=== PATIENT | female | born 1945 | race Caucasian/White ===

== ENCOUNTER 2016-03-25 09:30 | Inpatient (IN) | payer OTHER ==
[2016-03-17 08:23] VITALS: BMI 36.0
--- NOTE | 2016-03-17 08:58 | PAT Medication Instructions ---
Service Date Mar 17, 2016. Current Home Medication List Albuterol Sulfate (Proair Respiclick), 2 PUFFS INH QID PRN for RN Fluticasone Propionate (Flovent Hfa), 2 PUFFS INH QID PRN for RN Fluticasone Propionate (Nasal) (Flonase Allergy Relief), 2 SPRAYS DUSTY BID Hydrochlorothiazide (Hctz), 25 MG PO QPM Ibuprofen (Advil), 200 MG PO PRN Levothyroxine Sodium (Levothyroxine Sodium), 1 TAB PO QAM Meclizine Hcl (Meclizine Hcl), 1 TAB PO TID PRN for RN Naproxen (Aleve), 220 MG PO PRN Potassium Ext Rel (Klor-Con), 10 MEQ PO BID Sertraline (Zoloft), 100 MG PO QAM Medication Instructions For Your Scheduled Surgery - Check with surgeon for instructions: Ibuprofen (Advil), 200 MG PO PRN Naproxen (Aleve), 220 MG PO PRN - Hold the following medications the morning of surgery: Potassium Ext Rel (Klor-Con), 10 MEQ PO BID - Take the following medications the morning of surgery with a sip of water: Sertraline (Zoloft), 100 MG PO QAM Meclizine Hcl (Meclizine Hcl), 1 TAB PO TID PRN for RN (if needed) Levothyroxine Sodium (Levothyroxine Sodium), 1 TAB PO QAM Albuterol Sulfate (Proair Respiclick), 2 PUFFS INH QID PRN for RN (bring with you to hospital to morning of surgery) Fluticasone Propionate (Flovent Hfa), 2 PUFFS INH QID PRN for RN Fluticasone Propionate (Nasal) (Flonase Allergy Relief), 2 SPRAYS DUSTY BID - Take the following medications as scheduled the night before surgery: Potassium Ext Rel (Klor-Con), 10 MEQ PO BID Meclizine Hcl (Meclizine Hcl), 1 TAB PO TID PRN for RN Hydrochlorothiazide (Hctz), 25 MG PO QPM Albuterol Sulfate (Proair Respiclick), 2 PUFFS INH QID PRN for RN Fluticasone Propionate (Flovent Hfa), 2 PUFFS INH QID PRN for RN Fluticasone Propionate (Nasal) (Flonase Allergy Relief), 2 SPRAYS DUSTY BID If you have any questions please call us at [phone] (Lisa Hair PA-C) or [phone] or [phone]
[2016-03-17 09:23] LABS: BASO % 1.4 %; BASO ABS # 0.07 K/uL (0-0.2); COMPLETE YES; EOS % 2.7 %; HEMATOCRIT 39.7 % (37-47); IG% 0.2 %; LYMPH % 26.9 %; MEAN CELL VOLUME 89.2 fL (80-100); MEAN CORPUSCULAR HEMOGLOBIN 29.9 pg (25-34); MEAN CORPUSCULAR HGB CONC 33.5 g/dl (32-36); MEAN PLATELET VOLUME 11.8 fL (7.4-10.4); MONO % 6.4 %; NEUT % 62.4 %; PLATELET COUNT 276 K/uL (130-400); RED BLOOD COUNT 4.45 M/uL (4.2-5.4); WHITE BLOOD COUNT 4.83 K/uL (4.8-10.8)
[~2016-03-25] VITALS: Ht 165.1 cm; Wt 99.9 kg
[2016-03-25] VITALS (7 sets, daily range): BP systolic 124–177; BP diastolic 57–75; PULSE 58–94; TEMP 36.3–36.8; O2SAT 88–96; Ht 165.1 cm; Wt 99.9 kg
[~2016-03-25 09:30] MED LIST: ALBU18002 INH; CEFAZOLIN 3000 MG/65 ML D5W IV SCH; FLUT0.15 NAE; FLVHFA110 INH; HYDR25TA4 PO; IBUP-1050 PO; LACTATED RINGER'S 1000ML 1,000 ML IV SCH; LEVO75TA5 PO; MECL1TAB42 PO; NAPR1TAB9 PO; POTA-327 PO; SERT-234 PO
[2016-03-25] MEDS ORDERED: FENTANYL CITRATE INJ 50 MCG/1 ML 2 ML VIAL ONE (09:49)
[2016-03-25] MEDS ORDERED: MIDAZOLAM HCL 1 MG/ML 2ML VIAL ONE ×2 (09:49)
[2016-03-25] MEDS ORDERED: ATROPINE SULFATE 0.1 MG/ML 5ML SYR IV PRN (10:15)
[2016-03-25] MEDS ORDERED: PHENYLEPHRINE 100MCG/ML 5ML SYR IV PRN (10:15)
[2016-03-25] MEDS ORDERED: EpHEDrine SULFATE INJ 50 MG/ML AMP IV PRN (10:15)
[2016-03-25] MEDS ORDERED: ONDANSETRON INJ 2 MG/ML 2 ML VIAL IV PRN ×2 (10:15→14:30)
--- NOTE | 2016-03-25 10:17 | History & Physical Bridge Note ---
H&P Re-Evaluation Bridge Note: I have examined the patient, reviewed the History & Physical and in the interval since the performance of the History & Physical I have noted the following changes of clinical significance: No changes noted
[2016-03-25] MEDS ORDERED: PROPOFOL IV EMULSION 10 MG/ML 20 ML VIAL IV ONE (12:28)
[2016-03-25] MEDS ORDERED: GLYCOPYRROLATE INJ 0.2 MG/ML VIAL ONE (12:29)
[2016-03-25] MEDS ORDERED: ROCURONIUM BROMIDE 10 MG/ML 5 ML VIAL ONE (12:29)
[2016-03-25] MEDS ORDERED: NEOSTIGMINE METHYLSULFATE 5 MG/5 ML SYR ONE (12:29)
[2016-03-25] MEDS ORDERED: LIDOCAINE HCL 2% 2 ML VIAL (20MG/ML) ONE (12:29)
[2016-03-25] MEDS ORDERED: MoRPHine SULFATE 2 MG/ML CARP ONE (12:48)
[2016-03-25] MEDS ORDERED: BUPIVACAINE 0.5 % 5 MG/1 ML MPF 30ML VIAL INJ ONE (13:53)
--- NOTE | 2016-03-25 14:23 | [facility] Post Operative Brief Note ---
Immediate Operative Summary Operative Date Mar 25, 2016. Pre-Operative Diagnosis Complex Endometrial Hyperplasia with atypia, postmenopausal bleeding Post-Operative Diagnosis Complex Endometrial Hyperplasia with atypia, postmenopausal bleeding Procedure(s) Performed Total Laparoscopic Hysterectomy with Bilateral Salpingo-Oophorectomy; Cystoscopy Surgeon Dr. Barbosa Cargo Broker Surgeon(s) Dr. Blackman Estimated Blood Loss 50ML Findings On Laparoscopic exam uterus was normal size at midline and freely mobile. Bilateral tubes and ovaries were normal as well. There was a small pedunculated fibroid at the anterior lower uterine segment which was removed to aid visualization. The cervix, uterus and bilateral tubes and ovaries were successfully removed laparoscopically. Anesthesia was then instructed to push methylene blue. Once the vaginal cuff was closed a cystoscopy was performed noting that the bladder was intact with no injury or suture within the bladder wall. Bilateral ureters spilled blue tinged urine indicating both ureters were intact. The patient tolerated the procedure well and was sent to recovery with stable vital signs. Fluids (cc crystalloids) 1200 Specimens A) Right tube & ovary B) Left tube & ovary C) Uterus & fibroid Drains Turner to gravity Anesthesia General Complication(s) None Disposition Recovery Room / PACU
[2016-03-25] MEDS ORDERED: FLUTICASONE HFA 110MCG INHALER INH PRN (14:30)
[2016-03-25] MEDS ORDERED: SENNA 8.6 MG TAB PO PRN (14:30)
[2016-03-25] MEDS ORDERED: MAGNESIUM HYDROXIDE SUSP 30 ML UDC PO PRN (14:30)
[2016-03-25] MEDS ORDERED: BISACODYL 10 MG SUPP PR PRN (14:30)
[2016-03-25] MEDS ORDERED: MECLIZINE HCL 25 MG TAB PO PRN (14:30)
[2016-03-25] MEDS ORDERED: KETOROLAC TROMETHAMINE 15 MG/ML VIAL IV. PRN (14:30)
[2016-03-25] MEDS: HYDROmorphone INJ 2 MG/ML SYR/VIAL IV PRN ×4 (15:05→15:20)
[2016-03-25] MEDS: POTASSIUM CHLORIDE 10 MEQ TABCR PO SCH (17:30)
--- NOTE | 2016-03-25 17:54 | Anesthesiology Progress Note ---
Anesthesia Post Op Note Date & Time Mar 25, 2016 at 17:54 Vital Signs Pain Intensity: 2 Vital Signs Past 12 Hours Date Time Temp Pulse Resp B/P Pulse Ox O2 Delivery O2 Flow Rate FiO2 03/25/16 15:31 36.4 53 16 120/61 95 Nasal Cannula 2 03/25/16 15:25 45 16 122/59 97 Nasal Cannula 2 03/25/16 15:15 58 16 95/53 95 Nasal Cannula 2 03/25/16 15:05 53 13 120/63 98 Nasal Cannula 2 03/25/16 14:55 45 15 122/59 97 Nasal Cannula 2 03/25/16 14:45 60 15 155/78 100 Nasal Cannula 10 03/25/16 14:35 62 15 157/76 100 Nasal Cannula 10 03/25/16 14:26 37.2 70 12 158/83 98 Nasal Cannula 10 03/25/16 10:10 36.8 62 18 177/75 96 Room Air Notes Mental Status: alert / awake / arousable, participated in evaluation Pt Amnestic to Procedure: Yes Nausea / Vomiting: adequately controlled Pain: adequately controlled Airway Patency, RR, SpO2: stable & adequate BP & HR: stable & adequate Hydration State: stable & adequate Anesthetic Complications: no major complications apparent
[2016-03-25 20:39] LABS: HEMATOCRIT 40.6 % (37-47)
[2016-03-25] MEDS ORDERED: HYDROCHLOROTHIAZIDE 25 MG TAB PO SCH (21:00)
[2016-03-25] MEDS: FLUTICASONE PROPIONATE NA SPR 16 GM BTL NAE SCH (21:22)
[2016-03-26 00:15] VITALS: BP 123/78; PULSE 70; TEMP 36.3; O2SAT 94
[2016-03-26 04:00] VITALS: BP 107/65; PULSE 52; TEMP 36.5; O2SAT 95
[2016-03-26] MEDS ORDERED: LEVOTHYROXINE 75 MCG TAB PO SCH (07:00)
[2016-03-26 07:05] LABS: BASO % 0.2 %; BASO ABS # 0.02 K/uL (0-0.2); COMPLETE YES; HEMATOCRIT 36.3 % (37-47); IG% 0.2 %; LYMPH % 7.8 %; LYMPH ABS # 1.01 K/uL (1.2-3.4); MEAN CELL VOLUME 89.6 fL (80-100); MEAN CORPUSCULAR HEMOGLOBIN 30.1 pg (25-34); MEAN CORPUSCULAR HGB CONC 33.6 g/dl (32-36); MEAN PLATELET VOLUME 12.1 fL (7.4-10.4); MONO % 4.1 %; NEUT % 87.7 %; PLATELET COUNT 283 K/uL (130-400); RED BLOOD COUNT 4.05 M/uL (4.2-5.4); WHITE BLOOD COUNT 13.02 K/uL (4.8-10.8)
[2016-03-26 07:25] VITALS: BP 117/68; PULSE 64; TEMP 36.4; O2SAT 96
--- NOTE | 2016-03-26 08:25 | Surgery Progress Note ---
Surgery Progress Note Date of Service Mar 26, 2016. Subjective + ambulating, + diet (Tolerating pO food and meds), + feeling well, No SOB, No bowel movement, No chest pain, No complaints, No flatus, No nausea, No pain controlled, No using DIRECTOR OF SPORTS PERFORMANCE, No vomiting Objective Vital Signs: Date Time Temp Pulse Resp B/P Pulse Ox O2 Delivery O2 Flow Rate FiO2 03/26/16 04:00 36.5 52 18 107/65 95 Room Air 03/26/16 00:15 36.3 70 16 123/78 94 Room Air 03/26/16 00:15 94 Room Air 03/25/16 20:00 36.7 66 16 137/73 93 Room Air 03/25/16 19:00 36.6 62 18 125/57 95 Room Air 03/25/16 18:00 36.3 74 18 124/67 92 Room Air 03/25/16 17:00 36.3 94 16 125/74 88 Nasal Cannula 2.0 03/25/16 16:30 36.3 63 16 149/74 93 Nasal Cannula 1.0 03/25/16 16:00 93 Nasal Cannula 2.0 03/25/16 16:00 36.7 58 16 125/73 93 Nasal Cannula 2.0 03/25/16 15:31 36.4 53 16 120/61 95 Nasal Cannula 2 03/25/16 15:25 45 16 122/59 97 Nasal Cannula 2 03/25/16 15:15 58 16 95/53 95 Nasal Cannula 2 03/25/16 15:05 53 13 120/63 98 Nasal Cannula 2 03/25/16 14:55 45 15 122/59 97 Nasal Cannula 2 03/25/16 14:45 60 15 155/78 100 Nasal Cannula 10 03/25/16 14:35 62 15 157/76 100 Nasal Cannula 10 03/25/16 14:26 37.2 70 12 158/83 98 Nasal Cannula 10 03/25/16 10:10 36.8 62 18 177/75 96 Room Air General Appearance: WD/WN, no apparent distress Head: normocephalic, atraumatic Neck: supple, no adenopathy, thyroid normal, no JVD, no carotid bruits, trachea midline Respiratory/Chest: chest non-tender, lungs clear, normal breath sounds, no respiratory distress, no accessory muscle use Cardiovascular: regular rate, rhythm, no edema, no gallop, no JVD, no murmur Abdomen: normal bowel sounds, non tender, non distended, soft, no organomegaly , no pulsatile mass Incision(s): clean, dry, intact, no erythema, no drainage Extremities: normal range of motion, non-tender, normal inspection, no pedal edema, no calf tenderness, normal capillary refill, pelvis stable Laboratory Results: Results Past 24 Hours Test 03/25/16 19:50 03/26/16 06:43 Range/Units Hemoglobin 13.7 12.2 12.0-16.0 g/dL Hematocrit 40.6 36.3 37-47 % White Blood Count 13.02 4.8-10.8 K/uL Red Blood Count 4.05 4.2-5.4 M/uL Mean Corpuscular Volume 89.6 80-100 fL Mean Corpuscular Hemoglobin 30.1 25-34 pg Mean Corpuscular Hemoglobin Concent 33.6 32-36 g/dl Platelet Count 283 130-400 K/uL Mean Platelet Volume 12.1 7.4-10.4 fL Neutrophils (%) (Auto) 87.7 % Lymphocytes (%) (Auto) 7.8 % Monocytes (%) (Auto) 4.1 % Eosinophils (%) (Auto) 0.0 % Basophils (%) (Auto) 0.2 % Neutrophils # (Auto) 11.42 1.4-6.5 K/uL Lymphocytes # (Auto) 1.01 1.2-3.4 K/uL Monocytes # (Auto) 0.54 0.11-0.59 K/uL Eosinophils # (Auto) 0.00 0-0.5 K/uL Basophils # (Auto) 0.02 0-0.2 K/uL RDW Standard Deviation 42.0 36.4-46.3 fL RDW Coefficient of Variation 12.8 11.5-14.5 % Immature Granulocyte % (Auto) 0.2 % Immature Granulocyte # (Auto) 0.03 0.00-0.02 K/uL Assessment & Plan Lap Hyst+ BSO pt doing well d/c home with instructions
[2016-03-26] MEDS ORDERED: OXYC-57 PO (08:27)
[2016-03-26] MEDS ORDERED: MTR600X PO (08:27)
--- NOTE | 2016-03-26 08:28 | Discharge Instructions ---
Discharge Instructions Admission Reason for Admission: Complex Hyperplasia with Atypia Discharge Discharge Diagnosis / Problem: laparoscip hysterectomy Discharge Goals Goal(s): Routine recovery after surgery Activity Recommendations Activity Limitations: as noted below Lifting Limitations: gradually increase as tolerated Exercise/Sports Limitations: until after follow-up appointment May Resume Sexual Activity: after follow-up appointment Shower/Bathe: keep incision dry Driving or Machine Use: . Instructions / Follow-Up Instructions / Follow-Up POST OPERATIVE: BOWEL FUNCTION/MEDICATIONS: 1. Constipation pain and discomfort are the most common complaints 5-7 days after surgery. Points 2-6 address the things that can help. 2. Chewing gum can help stimulate the gut and help improve digestion and motility. 3. Milk of Magnesia 1-2 times per day until return of bowel function. 4. Colace is a stool softener that helps. Taking this 2-3 times per day until bowel function returns to normal is highly recommended. 5. Dulcolax is a laxative that may be used if several days have passed without a bowel movement. Alternatively Miralax may be used daily instead. 6. Drink plenty of fluids as this will also reduce constipation. 7. Narcotic pain medications will be prescribed by your physician. They are safe to use and we encourage you to use them. If you are not allergic, ibuprofen will also be prescribed. Many patients will be able to transition off of the narcotic medications to ibuprofen by postoperative day 3. ACTIVITY RECOMMENDATIONS: 1. Get plenty of rest and listen to your body. If you are tired, take a nap. 2. You may shower, but do not take a tub bath until you see your doctor at the 2 week post operative visit. 3. Absolutely NO intercourse and nothing in the vagina until you are examined by your doctor at the 6 week visit. At that visit it will be determined when such activities can be resumed. This can range from 6-12 weeks after your surgery depending on healing time. 4. The main physical activity in the first week should be walking. By the second week you can slowly increase activity. There are no limits on walking up and down stairs. 5. Do not lift more than 5-10 lbs for 4 weeks. Remember the "one-handed rule", i.e. if you can lift something with only one hand it's likely okay. 6. Minimize equipment processer storage like vacuuming and exercising for 4 weeks. "Overdoing it" can lead to incisions not healing, pain and vaginal bleeding , so again, listen to your body. 7. Driving can be resumed when you feel able. Do not drive within 24 hours of taking a narcotic medication. EXPECTATIONS: 1. Vaginal spotting, bleeding and discharge are common after surgery. There may even be an odor to the discharge which is often related to sutures used in the vagina. If you experience heavy vaginal bleeding, call the office number day or night [phone]. 2. Bladder discomfort is common after surgery from the catheter. This usually resolves in 1-2 weeks. 3. By the end of the 3rd or 4th week you should be feeling much better. It may take up to 6 weeks for your energy levels to return to normal. 4. Narcotic medications have side effects such as: dizziness, headache, nausea and/or vomiting. If you suspect your pain medication is causing problems, call our office and we may be able to prescribe an alternate medication. 5. The skin incisions are often covered with a liquid bandage. This will gradually peel off over time. CALL THE OFFICE IF YOU HAVE ANY OF THE FOLLOWIN. Temperature of 101 degrees or higher. 2. Severe abdominal or pelvic pain not relieved by pain medication. 3. Persistent nausea or vomiting. 4. Increased pain with urination or difficulty urinating. 5. Bright red bleeding that soaks more than 1 pad per hour. CONTACT PHONE NUMBERS: Main Office: [phone] Surgical Nurse: [phone] extension [phone] FOLLOW-UP: Post-Operative Appointments: * Individual instructions will have been given about the timing of your first examination, but this is usually at the end of the second week home. * You will need to call the office at soon after discharge to make the appointment for your post-op check-up if it has not already been scheduled. * Additional information regarding activity, sexual intercourse and when to return to work will be given at this appointment. WE WISH YOU A SPEEDY RECOVERY! Current Hospital Diet Patient's current hospital diet: Regular Diet Discharge Diet Recommended Diet: Regular Diet Procedures Procedures Performed: Total Laparoscopic Hysterectomy with Bilateral Salpingo-Oophorectomy; Cystoscopy Pending Studies Studies pending at discharge: no Medical Emergencies . Who to Call and When: Medical Emergencies: If at any time you feel your situation is an emergency, please call 911 immediately. . Non-Emergent Contact Non-Emergency issues call your: Specialist Call Non-Emergent contact if: you have a fever, your pain is not controlled, wound has increased drainage . . "Provider Documentation" section prepared by Duke Blackman. VTE Core Measure Inpt VTE Proph given/why not?: Treatment not indicated
[2016-03-26] MEDS: POTASSIUM CHLORIDE 10 MEQ TABCR PO SCH (08:41)
[2016-03-26] MEDS: FLUTICASONE PROPIONATE NA SPR 16 GM BTL NAE SCH (08:42)
[2016-03-26] MEDS: IBUPROFEN 600 MG TAB PO PRN ×2 (08:43→14:32)
[2016-03-26] MEDS: OXYCODONE/ACETAMINOPHEN 5-325 TAB PO PRN ×2 (08:43→14:32)
[2016-03-26] MEDS ORDERED: SERTRALINE HCL 100 MG TAB PO SCH (09:00)
[2016-03-26 10:42] VITALS: BP 117/68; PULSE 64; TEMP 36.4; O2SAT 96
--- NOTE | 2016-04-01 20:58 | OPERATIVE REPORT ---
DATE OF OPERATION: 03/25/2016 PREOPERATIVE DIAGNOSES: 1. Complex endometrial hyperplasia with atypia. 2. Postmenopausal bleeding. POSTOPERATIVE DIAGNOSES: Same. OPERATIVE PROCEDURE: Total laparoscopic hysterectomy with bilateral salpingo-oophorectomy and cystoscopy. SURGEON: Dr. Olvera. MINE UTILITY OPERATOR: Dr. Blackman. ANESTHESIA: General. ESTIMATED BLOOD LOSS: 50 mL. IV FLUIDS: 1200 mL crystalloids. SPECIMENS: Right tube and ovary, left tube and ovary and uterus and cervix to pathology. DRAINS: Turner to gravity. COMPLICATIONS: None. DISPOSITION: To recovery room. OPERATIVE FINDINGS: Upon laparoscopic exam, uterus is normal size and midline and freely mobile. Bilateral tubes and ovaries were normal as well. There was a small pedunculated fibroid at the anterior lower uterine segment which was removed to aid visualization. The cervix, uterus and bilateral tubes and ovaries were successfully removed laparoscopically. Anesthesia was then instructed to push methylene blue. Once the vaginal cuff was closed, a cystoscopy was performed, noting that the bladder was intact with no injury or suture within the bladder wall. Bilateral ureters showed blue-tinged urine, indicating both ureters were intact. The patient tolerated the procedure well and was sent to recovery with stable vital signs. OPERATIVE PROCEDURE IN DETAIL: The patient was taken to the operating room where general anesthesia was administered. Once anesthesia was found to be adequate, the patient was placed in the dorsal lithotomy position and was prepped and draped in a manner appropriate for the procedure. A weighted speculum was then placed into the vagina and the anterior lip of the cervix was grasped with single-tooth tenaculum. A medium VCare uterine manipulator was then placed within the uterus in an anteverted fashion and was suture ligated to the cervix with 0 Vicryl suture at the 6 o'clock and 12 o'clock positions. Once the VCare device was in place, a sterile Turner catheter was then placed within the bladder and remained indwelling throughout the entire procedure. Attention was then directed towards the laparoscopic portion of procedure, 0.5% Marcaine was injected below the umbilicus and an 11 mm skin incision was made in a horizontal fashion subumbilically. A Veress needle was then placed within the abdomen. Normal saline was injected with no fecal content aspirated. Pneumoperitoneum was then created. The Veress needle was then removed and an 11 mm trocar was then placed within the abdomen under direct laparoscopic visualization. The patient was then placed in Trendelenburg position. The bowel was displaced away from the pelvis. A second 11 mm skin incision was made on the left side of the abdomen and an 11 mm trocar was then placed within the abdomen under direct laparoscopic visualization. A third 11 mm skin incision was made on the right side of the abdomen and an 11 mm trocar was then placed within the abdomen under direct laparoscopic visualization. Once all [address], attention was directed towards the right adnexa where the round ligament was cauterized and transected. The infundibulopelvic ligament was cauterized and transected, continued inferiorly through the broad ligament. The anterior leaf of the broad ligament was and a bladder flap was created on the right side of the lower uterine segment. The bladder flap was pushed away from the lower uterine segment. Attention was then directed towards the left adnexa, which likewise the round ligament and infundibulopelvic ligaments were cauterized and transected and continued inferiorly through the broad ligament. The anterior leaf of the broad ligament was and the bladder flap was created on the left side of the lower uterine segment. The bladder was then pushed away from the lower uterine segment. The ascending uterine arteries were cauterized and transected, continued inferiorly through the cardinal uterosacral complex bilaterally. Once we were at the level of the [facility] uterine manipulator, the cervix was then circumferentially amputated from the vagina. Once the specimen was successfully amputated, the entire specimen including the left and right tube and ovary, uterus and cervix were all removed from the vagina. A sterile glove was then placed within the vagina to maintain pneumoperitoneum. The vaginal cuff was closed with 0 Polysorb suture in a continuous running fashion. The peritoneum was then closed with 0 Polysorb in a continuous running fashion as well. Anesthesia was then instructed to push methylene blue. All instruments were removed from the abdomen and as much of CO2 gas was allowed to percolate through open cannulas. A cystoscopy was then performed. Attention was directed towards perineum where the Turner catheter was then removed. The cystoscope was then introduced into the bladder and a thorough exam was then performed, noting that the bladder wall was intact with no injury or suture within the wall. Bilateral ureters spilled blue-tinged urine, indicating both ureters were intact. At this point, the procedure was found to be complete and the cystoscope was removed. A sterile Turner catheter was then placed within the bladder, all instruments were removed from the abdomen and as much of CO2 gas was allowed to percolate through open cannulas. The cannulas were then removed. The fascia of all 3 skin incisions were closed with 0 Vicryl suture in an interrupted [id number] fashion. All 3 skin incisions were then closed with 4-0 Monocryl in a subcuticular fashion. Excellent hemostasis was noted. A sterile glove was removed from the vagina. All sponge and instrument counts were found to be correct x2. The patient tolerated the procedure well and was sent to recovery with stable vital signs. I attest to the content of the Intraoperative Record and any orders documented therein. Any exceptio ns are noted below.
--- NOTE | 2016-04-09 22:45 | Discharge Summary ---
Discharge Summary Admission Date: Mar 25, 2016 at 14:18 Discharge Date: Mar 26, 2016 Discharge Disposition: Home Principal Diagnosis: Postmenopausal bleeding, complex endometrial hyperplasia with atypia Procedures: Total laparoscopic hysterectomy with BSO, cystoscopy Medication Reconciliation New Medications: Ibuprofen (Ibuprofen) 600 Mg Tab 600 MG PO Q4H PRN for Pain, WARNER, Cramping, Edema, #30 TAB Oxycodone/Acetaminophen 5MG/325MG (Percocet 5MG/325MG) Tab 1-2 TAB PO Q4H PRN for WARNER, Cramping, edema, #30 TAB PAIN Continued Medications: Albuterol Sulfate (Proair Respiclick) 108 Mcg/Act Aer 2 PUFFS INH QID PRN for RN Fluticasone Propionate (Flovent Hfa) 120 Puffs/19663 Mcg Aero 2 PUFFS INH QID PRN for RN for 30 Days, #1 INHALER 3 Refills Fluticasone Propionate (Nasal) (Flonase Allergy Relief) 50 Mcg/Act Spr 2 SPRAYS DUSTY BID Hydrochlorothiazide (Hctz) 25 Mg Tab 25 MG PO QPM, TAB Levothyroxine Sodium (Levothyroxine Sodium) 75 Mcg Tab 1 TAB PO QAM for 90 Days, #90 TAB 3 Refills Meclizine Hcl (Meclizine Hcl) 25 Mg Tab 1 TAB PO TID PRN for RN for 10 Days, #30 TAB Naproxen (Aleve) 220 Mg Tab 220 MG PO PRN, TAB Potassium Ext Rel (Klor-Con) 10 Meq Tabcr 10 MEQ PO BID, TAB Sertraline (Zoloft) 100 Mg Tab 100 MG PO QAM, TAB Admission Information HPI (per Admitting provider): Patient is a 70 y/o female who had postmenopausal bleeding. She underwent a D&C and was found to have complex endometrial hyperplasia with atypia. She agreed to proceed with a hysterectomy with BSO. Discussed the risks, benefits and alternatives and informed consent was signed. Physical Exam (per Admitting): General Appearance: WD/WN, no apparent distress Respiratory/Chest: chest non-tender, lungs clear Cardiovascular: regular rate, rhythm Abdomen/GI: normal bowel sounds, non tender, soft Neurologic/Psych: alert, oriented x 3 Skin: normal color, warm/dry, no rash Hospital Course She underwent her scheduled total laparoscopic hysterectomy with BSO on the day of admission without complications. Her postoperative recovery was uneventful. On post op day # 1 her torres catheter was removed. Her diet and activity were advanced as tolerated. Pain was well controlled. Incisions remained clean/dry and intact. She was discharged home on POD # 1 with discharge instructions. Total time spent on discharge = 30 mins This includes examination of the patient, discharge planning, medication reconciliation, and communication with other providers. Discharge Instructions POST OPERATIVE: BOWEL FUNCTION/MEDICATIONS: 1. Constipation pain and discomfort are the most common complaints 5-7 days after surgery. Points 2-6 address the things that can help. 2. Chewing gum can help stimulate the gut and help improve digestion and motility. 3. Milk of Magnesia 1-2 times per day until return of bowel function. 4. Colace is a stool softener that helps. Taking this 2-3 times per day until bowel function returns to normal is highly recommended. 5. Dulcolax is a laxative that may be used if several days have passed without a bowel movement. Alternatively Miralax may be used daily instead. 6. Drink plenty of fluids as this will also reduce constipation. 7. Narcotic pain medications will be prescribed by your physician. They are safe to use and we encourage you to use them. If you are not allergic, ibuprofen will also be prescribed. Many patients will be able to transition off of the narcotic medications to ibuprofen by postoperative day 3. ACTIVITY RECOMMENDATIONS: 1. Get plenty of rest and listen to your body. If you are tired, take a nap. 2. You may shower, but do not take a tub bath until you see your doctor at the 2 week post operative visit. 3. Absolutely NO intercourse and nothing in the vagina until you are examined by your doctor at the 6 week visit. At that visit it will be determined when such activities can be resumed. This can range from 6-12 weeks after your surgery depending on healing time. 4. The main physical activity in the first week should be walking. By the second week you can slowly increase activity. There are no limits on walking up and down stairs. 5. Do not lift more than 5-10 lbs for 4 weeks. Remember the "one-handed rule", i.e. if you can lift something with only one hand it's likely okay. 6. Minimize cigarette making examiner like vacuuming and exercising for 4 weeks. "Overdoing it" can lead to incisions not healing, pain and vaginal bleeding , so again, listen to your body. 7. Driving can be resumed when you feel able. Do not drive within 24 hours of taking a narcotic medication. EXPECTATIONS: 1. Vaginal spotting, bleeding and discharge are common after surgery. There may even be an odor to the discharge which is often related to sutures used in the vagina. If you experience heavy vaginal bleeding, call the office number day or night [phone]. 2. Bladder discomfort is common after surgery from the catheter. This usually resolves in 1-2 weeks. 3. By the end of the 3rd or 4th week you should be feeling much better. It may take up to 6 weeks for your energy levels to return to normal. 4. Narcotic medications have side effects such as: dizziness, headache, nausea and/or vomiting. If you suspect your pain medication is causing problems, call our office and we may be able to prescribe an alternate medication. 5. The skin incisions are often covered with a liquid bandage. This will gradually peel off over time. CALL THE OFFICE IF YOU HAVE ANY OF THE FOLLOWIN. Temperature of 101 degrees or higher. 2. Severe abdominal or pelvic pain not relieved by pain medication. 3. Persistent nausea or vomiting. 4. Increased pain with urination or difficulty urinating. 5. Bright red bleeding that soaks more than 1 pad per hour. CONTACT PHONE NUMBERS: Main Office: [phone] Surgical Nurse: [phone] extension [phone] FOLLOW-UP: Post-Operative Appointments: * Individual instructions will have been given about the timing of your first examination, but this is usually at the end of the second week home. * You will need to call the office at soon after discharge to make the appointment for your post-op check-up if it has not already been scheduled. * Additional information regarding activity, sexual intercourse and when to return to work will be given at this appointment. WE WISH YOU A SPEEDY RECOVERY!
== END 2016-03-26 14:45 | disposition home or self-care (01) | DRG 743 ==
LOC: ENRESERVDT → ENRESERVTM → C.ACU 09:30 → C.MS4N 14:18
PROVIDERS: ADMIT Obstetrics & Gynecology; ATTEND Obstetrics & Gynecology
PROC: 0UT20ZZ Resection of Bilateral Ovaries, Open Approach (ICD-10-PCS; principal; 2016-03-25 11:45)
PROC: 0UTC0ZZ Resection of Cervix, Open Approach (ICD-10-PCS; principal; 2016-03-25 11:45)
PROC: 0UT70ZZ Resection of Bilateral Fallopian Tubes, Open Approach (ICD-10-PCS; principal; 2016-03-25 11:45)
PROC: 0UT90ZZ Resection of Uterus, Open Approach (ICD-10-PCS; principal; 2016-03-25 11:45)
DX: N85.02 Endometrial intraepithelial neoplasia [EIN] (principal); N95.0 Postmenopausal bleeding; K59.00 Constipation, unspecified

== ENCOUNTER 2018-12-12 03:29 | Inpatient (IN) ==
[2018-12-12] MEDS ORDERED: SODIUM CHLORIDE 0.9% 1000ML 500 ML IV ONE (03:55)
[2018-12-12] MEDS ORDERED: fentaNYL citrate 100 MCG/2 ML VIAL IV STA ×2 (03:55→05:06)
[2018-12-12] MEDS ORDERED: ONDANSETRON INJ 2 MG/ML 2 ML VIAL IV STA (03:55)
--- NOTE | 2018-12-12 04:09 | Emergency Department Note ---
ED Provider Note Name: Wendi Magallon Age: 73 F Arrives Via: POV Informant: Patient/ CC: Vomiting HPI: 73 female arrives for evaluation of vomiting. Patient notes that she was feeling fine today. She had some fried chicken form [employer] and a few hours later worsening nausea. Followed by vomiting and has been periodically vomiting since 7pm. She notes epigastric pain with mild radiation to back. Associated with fullness of stomach. Normal BM yesterday without diarrhea. No headache, neck pain, cp, sob, urinary symptoms, rashes, leg swelling, fevers, chills, nor other symptoms. No falls, trauma. Nothing makes better nor worse. Used Malox without improvement. ROS: See above HPI for pertinent positives & negatives. A total of 10 systems reviewed and were otherwise negative. Past Medical History: Allergies, Hypertension, Hypothyroid, Depression, Asthma Past Surgical History: Hysterectomy, Cataract Family History: Notes mother with GB disease Social History: Lives with . Retired. No Etoh/Tobacco in 30 years. No drug use. Feels safe at home. Home Medications: Fluticasone nasal, hydrochlorothyazide, motrin, levothyroxine, meclizine, naproxen, potassium, sertraline Allergies: Bacitracin, neomycin, nickel, sulfa Physical: Vitals: BP 195/79, P 59, R 16, O2 95%, Temp 36.6 Exam: GENERAL: Patient is uncomfortable appearing and in moderate distress. Dry heaving with periodic vomit bilious emesis. EYES: No scleral icterus, unremarkable pupils. ENT: Mucous membranes dry, no nasal congestion. NECK: No masses appreciated, no meningismus, trachea is midline. RESPIRATORY: No dyspnea. Clear to auscultation and equal bilaterally. No wheeze, no rhonchi. CARDIOVASCULAR: Regular rate and rhythm. No murmurs, rubs, gallops appreciated. GASTROINTESTINAL: TTP over epigastrium, hyperactive bowel sounds over mid abdomen. Bowel sounds positive. No masses appreciated. BACK: No midline tenderness, no CVA tenderness EXTREMITIES: Normal motion all extremities, no cyanosis, no edema. NEUROLOGIC: Alert and oriented, no acute motor or sensory deficits, no focal weakness, cranial nerves grossly intact. SKIN: No rash, no jaundice, no diaphoresis. ED Course: Prior Medical Record, Triage/Nursing Notes, Medications, Allergies reviewed by Me Vital Signs: reviewed and remarkable for HTN Labs: Reviewed and remarkable for wnl Interventions: saline lock, fentanyl 50mcg IV x 2, zofran 4mg IV x 1, mefoxin 2gm IV Imaging: [facility] Radiologist interpretation reviewed by me: "CT ABDOMEN & PELVIS With Contrast: Multiple gallstones in distended gallbladder, including stone in neck and there is mild pericholecystic fat stranding, suspicious for acute cholecystitis. Consider correlation with right upper quadrant ultrasound or nuclear medicine biliary scan. Moderate bilateral renal atrophy. Subcentimeter renal hypodensities are too small to accurately characterize but likely cysts. Post-hysterectomy. Solid organs otherwise unremarkable. Appendix is within normal limits. No free air or free fluid. No bowel obstruction. Very small sliding hiatal hernia. Multilevel degenerative changes of lumbar spine. Radiologist: Enrique Cabrera MD" Blood pressure: Elevated - [place] to be Situation. Refer to PCP Course: Evaluated, pain controlled, repeat evaluations not septic. Consults: Dr Esparza will admit to Gen surg service Disposition: Hospitalization Differentials: Cholecystitis, pencreatitis, liver issue, sbo, acs, dissection amongst other pathologies. Medical Decision Makin yr old female with history of htn, asthma, hypothyroid, depression arrives with acute epigastric abdominal pain radiating to back with vomiting. CT rev eals acute cholecystitis due to obstructing gallstone in neck. She is comfortable with pain meds. Given Mefoxin IV. Dr Esparza to admit. Patient stable throughout and comfortable with plan. Impression: Acute Cholecystitis Gallstones with obstruction of gallbladder Enrique Wilhelm MD Impression & Plan Acute cholecystitis, Gallstones with obstruction of gallbladder Past Med/Surg History Medical History Leg edema (Chronic) HTN (hypertension) (Chronic) Asthma (Chronic) Depression (Chronic) Hypothyroidism (Chronic) Complex endometrial hyperplasia with atypia (Chronic) Asthma (Chronic) Constipation (Chronic) Hypothyroidism (Chronic) Seasonal allergies (Chronic) Surgical History S/P cataract surgery (Resolved) H/O dilation and curettage (Resolved) S/P breast biopsy (Resolved) S/P laparoscopic hysterectomy (Chronic) Status post bilateral salpingo-oophorectomy (Chronic) History of bilateral salpingo-oophorectomy History of breast biopsy History of hysterectomy for cancer Social History Preferred Language: Turkmen Communication Ability: Effective Picture Enlarger Required: Yes Beliefs That Will Affect Care: None Current Living Situation: Spouse Other Information That Helps Us Care for You: No Feels Safe at Home: Yes Safety Concerns: Feels Safe At This Time Smoking Status: Former smoker Smoking End Date: 1996 ; Hx Alcohol Use: No Hx Substance Use: No Results & Data Vital Signs Vital Signs - 24 hr 12/12/18 03:34 12/12/18 06:03 Temperature 36.6 C 36.6 C Temperature Source Oral Oral Sepsis Recent Fever Within 48 Hours No Sepsis New/Unexplained Change in Mental Status No Sepsis Action Taken by Nursing No Action Required Pulse Rate 59 L Pulse Rate [Right Finger] 50 L Respiratory Rate 16 Blood Pressure 195/79 H Blood Pressure [Left Arm] 173/73 H Blood Pressure Mean 117 Blood Pressure Mean [Left Arm] 106 Pulse Oximetry 95 93 Oxygen Delivery Method Room Air Room Air Laboratory Data Result diagrams: 12/12/18 04:05 12/12/18 04:05 Lab Results 12/12/18 12/12/18 12/12/18 Range/Units 04:05 04:05 04:12 WBC 10.20 (4.8-10.8) K/uL RBC 5.10 (4.2-5.4) M/uL Hgb 15.1 (12.0-16.0) g/dL POC Hgb 15.3 (12.0-16.0) g/dl Hct 44.5 (37-47) % POC Hct 45 (37-47) % MCV 87.3 (80-100) fL MCH 29.6 (25-34) pg MCHC 33.9 (32-36) g/dL RDW Std Deviation 42.7 (36.4-46.3) fL RDW Coeff of Jose Antonio 13.5 (11.5-14.5) % Plt Count 321 (130-400) K/uL MPV 11.7 H (7.4-10.4) fL Immature Gran % (Auto) 0.2 % Neut % (Auto) 89.7 % Lymph % (Auto) 7.9 % [place] % (Auto) 1.8 % Eos % (Auto) 0.0 % Baso % (Auto) 0.4 % Immature Gran # (Auto) 0.02 (0.00-0.02) K/uL Neut # (Auto) 9.15 H (1.4-6.5) K/uL Lymph # (Auto) 0.81 L (1.2-3.4) K/uL [place] # (Auto) 0.18 (0.11-0.59) K/uL Eos # (Auto) 0.00 (0-0.5) K/uL Baso # (Auto) 0.04 (0-0.2) K/uL PT (9.0-12.0) Seconds INR (0.9-1.1) APTT (21.0-31.0) Seconds PTT Ratio POC Sodium 139 (135-144) mEq/L Sodium 138 (136-145) mmol/L POC Potassium 3.0 L (3.3-5.0) mEq/L Potassium 3.0 L (3.5-5.1) mmol/L POC Chloride 98 L (101-112) mEq/L Chloride 100 (98-107) mmol/L Carbon Dioxide 31 (21-32) mmol/L POC Total CO2 29 (24-31) mEq/l Anion Gap 7.0 (3-11) POC Anion Gap 16.0 (16-25) mmol/L POC BUN 8 (7-18) mg/dl BUN 10 (7-18) mg/dl Creatinine 0.91 (0.6-1.2) mg/dl POC Creatinine 0.8 (0.6-1.3) mg/dl Est Cr Clr Drug Dosing 60.6 ml/min Est GFR ( Amer) 71.5 Est GFR (Non-Af Amer) 61.7 BUN/Creatinine Ratio 10.5 (10-20) Glucose 142 H (70-99) mg/dl POC Glucose (other) 147 H (70-99) mg/dl Calcium 9.2 (8.5-10.1) mg/dl POC Ioniz Calcium Rah 1.16 (1.12-1.32) mmol/l Total Bilirubin 0.8 (0.2-1) mg/dl Direct Bilirubin 0.2 (0-0.2) mg/dl AST 18 (15-37) U/L ALT 25 (12-78) U/L Alkaline Phosphatase 90 (45-117) U/L Troponin I < 0.015 (0-0.045) ng/ml Total Protein 7.5 (6.4-8.2) gm/dl Albumin 4.1 (3.4-5.0) gm/dl Lipase 75 (73-393) U/L 12/12/18 Range/Units 06:40 WBC (4.8-10.8) K/uL RBC (4.2-5.4) M/uL Hgb (12.0-16.0) g/dL POC Hgb (12.0-16.0) g/dl Hct (37-47) % POC Hct (37-47) % MCV (80-100) fL MCH (25-34) pg MCHC (32-36) g/dL RDW Std Deviation (36.4-46.3) fL RDW Coeff of Jose Antonio (11.5-14.5) % Plt Count (130-400) K/uL MPV (7.4-10.4) fL Immature Gran % (Auto) % Neut % (Auto) % Lymph % (Auto) % [place] % (Auto) % Eos % (Auto) % Baso % (Auto) % Immature Gran # (Auto) (0.00-0.02) K/uL Neut # (Auto) (1.4-6.5) K/uL Lymph # (Auto) (1.2-3.4) K/uL [place] # (Auto) (0.11-0.59) K/uL Eos # (Auto) (0-0.5) K/uL Baso # (Auto) (0-0.2) K/uL PT 10.7 (9.0-12.0) Seconds INR 1.0 (0.9-1.1) APTT 26.6 (21.0-31.0) Seconds PTT Ratio 1.0 POC Sodium (135-144) mEq/L Sodium (136-145) mmol/L POC Potassium (3.3-5.0) mEq/L Potassium (3.5-5.1) mmol/L POC Chloride (101-112) mEq/L Chloride (98-107) mmol/L Carbon Dioxide (21-32) mmol/L POC Total CO2 (24-31) mEq/l Anion Gap (3-11) POC Anion Gap (16-25) mmol/L POC BUN (7-18) mg/dl BUN (7-18) mg/dl Creatinine (0.6-1.2) mg/dl POC Creatinine (0.6-1.3) mg/dl Est Cr Clr Drug Dosing ml/min Est GFR ( Amer) Est GFR (Non-Af Amer) BUN/Creatinine Ratio (10-20) Glucose (70-99) mg/dl POC Glucose (other) (70-99) mg/dl Calcium (8.5-10.1) mg/dl POC Ioniz Calcium Rah (1.12-1.32) mmol/l Total Bilirubin (0.2-1) mg/dl Direct Bilirubin (0-0.2) mg/dl AST (15-37) U/L ALT (12-78) U/L Alkaline Phosphatase (45-117) U/L Troponin I (0-0.045) ng/ml Total Protein (6.4-8.2) gm/dl Albumin (3.4-5.0) gm/dl Lipase (73-393) U/L Administered Medications Fluticasone Propionate (Flonase) 2 sprays DUSTY BID RICKY Stop: 01/11/19 20:59 Last Admin: 12/12/18 19:58 Dose: 2 sprays Documented by: [id number] Hydrochlorothiazide (Hctz) 25 mg PO QPM RICKY Stop: 01/11/19 20:59 Last Admin: 12/12/18 20:31 Dose: 25 mg Documented by: [id number] Lactated Ringer's (Lr) 1,000 mls @ 80 mls/hr IV .[id number] RICKY Stop: 01/11/19 08:14 Last Infusion: 12/13/18 04:27 Dose: 80 mls/hr Documented by: [id number] Infusion: 12/13/18 03:43 Dose: 0 mls/hr Documented by: [id number] Admin: 12/12/18 19:57 Dose: 80 mls/hr Documented by: [id number] Infusion: 12/12/18 19:54 Dose: 0 mls/hr Documented by: [id number] Admin: 12/12/18 08:15 Dose: 80 mls/hr Documented by: [id number] Ampicillin Sodium/Sulbactam Sodium 3,000 mg/ Sodium Chloride 108 mls @ 200 mls/hr IV Q6H [facility]; Protocol Stop: 12/22/18 08:59 Last Infusion: 12/13/18 04:27 Dose: 0 mls/hr Documented by: [id number] Admin: 12/13/18 03:42 Dose: 200 mls/hr Documented by: [id number] Infusion: 12/12/18 21:10 Dose: 0 mls/hr Documented by: [id number] Admin: 12/12/18 20:32 Dose: 200 mls/hr Documented by: [id number] Infusion: 12/12/18 15:18 Dose: 0 mls/hr Documented by: [id number] Admin: 12/12/18 14:30 Dose: 200 mls/hr Documented by: [id number] Infusion: 12/12/18 09:32 Dose: 0 mls/hr Documented by: [id number] Admin: 12/12/18 09:04 Dose: 200 mls/hr Documented by: [id number] Levothyroxine Sodium (Synthroid) 88 mcg PO DAILYBB [facility] Stop: 01/11/19 08:59 Last Admin: 12/13/18 05:58 Dose: 88 mcg Documented by: [id number] Admin: 12/12/18 08:58 Dose: 88 mcg Documented by: [id number] Morphine Sulfate (Morphine Sulfate) 4 mg IV Q3H PRN PRN Reason: SEVERE Pain (Scale 7,8,9,10) Stop: 12/26/18 07:56 Last Admin: 12/12/18 09:36 Dose: 4 mg Documented by: [id number] Oxycodone/Acetaminophen (Percocet 5mg/325mg) 1 tab PO Q4H PRN PRN Reason: MODERATE Pain (Scale 4,5,6) Stop: 12/26/18 07:56 Last Admin: 12/12/18 20:40 Dose: 1 tab Documented by: [id number] Potassium Chloride (Klor-Con M10) 10 meq PO BID [facility] Stop: 01/11/19 08:59 Last Admin: 12/12/18 20:31 Dose: 10 meq Documented by: [id number] Admin: 12/12/18 08:59 Dose: 10 meq Documented by: [id number] Sertraline HCl (Zoloft) 150 mg PO DAILY [facility] Stop: 01/11/19 08:59 Last Admin: 12/12/18 08:58 Dose: 150 mg Documented by: [id number] Discontinued Medications Bupivacaine HCl (Marcaine 0.5% Mpf) Confirm Administered Dose 30 ml .ROUTE .STK- MED ONE Stop: 12/12/18 10:31 Last Admin: 12/12/18 12:19 Dose: 20 ml Documented by: [id number] Fentanyl Citrate (Fentanyl Citrate) 50 mcg IV NOW STA Stop: 12/12/18 03:56 Last Admin: 12/12/18 04:26 Dose: 50 mcg Documented by: [id number] Fentanyl Citrate (Fentanyl Citrate) 50 mcg IV NOW STA Stop: 12/12/18 05:07 Last Admin: 12/12/18 05:16 Dose: 50 mcg Documented by: [id number] Fentanyl Citrate (Fentanyl Citrate) 50 mcg IV Q15M PRN PRN Reason: Pain Stop: 12/26/18 06:33 Last Admin: 12/12/18 07:16 Dose: 50 mcg Documented by: [id number] Sodium Chloride (Nss 1000ml) 500 mls @ 999 mls/hr IV .Q31M ONE Stop: 12/12/18 04:25 Last Infusion: 12/12/18 05:29 Dose: 0 mls/hr Documented by: [id number] Admin: 12/12/18 04:26 Dose: 999 mls/hr Documented by: [id number] Cefoxitin Sodium (Mefoxin) 2,000 mg in 60 mls @ 100 mls/hr IV NOW STA Stop: 12/12/18 06:59 Last Infusion: 12/12/18 07:37 Dose: 0 mls/hr Documented by: [id number] Admin: 12/12/18 07:01 Dose: 100 mls/hr Documented by: [id number] Cefazolin Sodium (Ancef 2000mg) 2,000 mg in 15 mls @ 3.75 mls/min IV PREOP ONE Stop: 12/12/18 10:35 Last Admin: 12/12/18 14:04 Dose: Not Given Documented by: [id number] Ioversol (Optiray 320 100ml) 100 ml IV ONCE PRN PRN Reason: Interaction Checking Stop: 12/16/18 04:42 Last Admin: 12/12/18 04:43 Dose: 92 ml Documented by: [id number] Lidocaine HCl (Xylocaine 1% (Local)) Confirm Administered Dose 20 ml .ROUTE .STK-MED ONE Stop: 12/12/18 10:31 Last Admin: 12/12/18 12:20 Dose: 20 ml Documented by: [id number] Ondansetron HCl (Zofran) 4 mg IV NOW STA Stop: 12/12/18 03:56 Last Admin: 12/12/18 04:26 Dose: 4 mg Documented by: [id number] Potassium Chloride (Klor-Con M20) 40 meq PO NOW STA Stop: 12/12/18 09:30 Last Admin: 12/12/18 09:54 Dose: Not Given Documented by: [id number] Discharge Plan Visit Data *Final* Discharge Date/Time: 12/12/18 07:12 Chief Complaint: Abdominal Pain Stated Complaint: STOMACH PAIN ED Provider: Enrique Wilhelm Discharge Problem: Acute cholecystitis, Gallstones with obstruction of gallbladder Patient Disposition: Admitted As Inpatient Condition: Good Discharge Instructions Interventions: ED Discharge Assessment Last Done: 12/12/18 07:12 Discharge Problem: Gallstones with obstruction of gallbladder Qualifiers: Cholecystitis presence: with cholecystitis Cholecystitis acuity: acute Qualified Code(s): K80.01 - Calculus of gallbladder with acute cholecystitis with obstruction
[2018-12-12 04:17] LABS: Basophils # (auto) 0.04 K/uL (0-0.2); Basophils % (auto) 0.4 %; Hematocrit (blood only) 44.5 % (37-47); Hemoglobin 15.1 g/dL (12.0-16.0); Immature Granulocytes # (auto) 0.02 K/uL (0.00-0.02); Immature Granulocytes % (auto) 0.2 %; Lymphocytes # (auto) 0.81 K/uL (1.2-3.4); Lymphocytes % (auto) 7.9 %; Mean Corpuscular Hemoglobin 29.6 pg (25-34); Mean Corpuscular Hgb Conc 33.9 g/dL (32-36); Mean Corpuscular Volume 87.3 fL (80-100); Mean Platelet Volume 11.7 fL (7.4-10.4); Monocytes # (auto) 0.18 K/uL (0.11-0.59); Monocytes % (auto) 1.8 %; Neutrophils # (auto) 9.15 K/uL (1.4-6.5); Neutrophils % (auto) 89.7 %; Platelet Count 321 K/uL (130-400); RDW Coefficient of Variation 13.5 % (11.5-14.5); RDW Standard Deviation 42.7 fL (36.4-46.3)
[2018-12-12 04:25] LABS: iSTAT Creatinine 0.8 mg/dl (0.6-1.3); iSTAT Hemoglobin 15.3 g/dl (12.0-16.0); iSTAT Ionized Calcium 1.16 mmol/l (1.12-1.32)
[2018-12-12 04:36] LABS: Alanine Aminotransferase 25 U/L (12-78); Albumin Level 4.1 gm/dl (3.4-5.0); Aspartate Aminotransferase 18 U/L (15-37); BUN Creatinine Ratio 10.5 (10-20); Bilirubin Direct 0.2 mg/dl (0-0.2); Blood Urea Nitrogen 10 mg/dl (7-18); Calcium 9.2 mg/dl (8.5-10.1); Carbon Dioxide 31 mmol/L (21-32); Chloride 100 mmol/L (98-107); Creatinine Clr Calc Pharmacy 60.6 ml/min; Est GFR (African American) 71.5; Est GFR (Non-African American) 61.7; Glucose 142 mg/dl (70-99); Lipase 75 U/L (73-393); Sodium 138 mmol/L (136-145)
[2018-12-12 04:41] LABS: Alkaline Phosphatase 90 U/L (45-117); Bilirubin,Total 0.8 mg/dl (0.2-1); Total Protein 7.5 gm/dl (6.4-8.2); Troponin I < 0.015 ng/ml (0-0.045)
[2018-12-12] MEDS ORDERED: IOVERSOL 100ml IV PRN (04:43)
[2018-12-12] MEDS ORDERED: cefOXitin 2,000 MG/60 ML BAG IV STA (06:24)
[2018-12-12] MEDS ORDERED: ONDANSETRON INJ 2 MG/ML 2 ML VIAL IV PRN ×3 (06:34→10:48)
[2018-12-12] MEDS ORDERED: fentaNYL citrate 100 MCG/2 ML VIAL IV PRN ×2 (06:34→10:48)
--- NOTE | 2018-12-12 06:47 | XRay Report ---
XR chest 1V portable HISTORY: 73 years-old Female pre-op preoperative exam. No acute chest complaints COMPARISON: CT abdomen and pelvis of same day TECHNIQUE: Portable AP view of the chest FINDINGS: Cardiac silhouette is upper limits of normal in size. Mild biapical pleural thickening. Mild intersti tial coarsening of the lung bases without pneumothorax, pleural effusion, focal airspace consolidatio n or overt pulmonary edema. Degenerative changes of the shoulders and spine. IMPRESSION: No acute process. The above report was generated using voice recognition software. It may contain grammatical, syntax o r spelling errors. Electronically signed by: Crispin Orozco M.D. 12/12/2018 6:45 AM
[2018-12-12 06:55] LABS: Appearance Urine Clear (Clear); Bilirubin Urine Negative (Negative); Blood Urine Negative (Negative); Color Urine Yellow; Glucose Urine UA Negative (Negative); Ketones Urine Trace (Negative); Leukocyte Esterase Urine Negative (Negative); Nitrite Urine Negative (Negative); Protein Urine Negative (Negative); Specific Gravity Urine > 1.045 (1.000-1.030); Urobilinogen Urine Negative (Negative); pH Urine 7.5 (4.5-7.5)
[2018-12-12 07:03] LABS: Partial Thromboplastin Time 26.6 Seconds (21.0-31.0); Prothrombin Time 10.7 Seconds (9.0-12.0)
--- NOTE | 2018-12-12 07:12 | CT Scan Report ---
CT OF THE ABDOMEN AND PELVIS WITH CONTRAST CLINICAL HISTORY: epigastric pain, vomiting COMPARISON STUDY: None. TECHNIQUE: Following IV administration of 92 mL of Optiray-320, axial images of the abdomen and pelvi s were obtained from the lung bases to the proximal femurs. Images were reviewed in the axial, sagitt al, and coronal planes. IV contrast was administered without complication. Automated exposure contro l was utilized for the study. A dose lowering technique was utilized adhering to the principles of A HANNAH. CT DOSE: 1161.22 mGy.cm FINDINGS: The liver, spleen, adrenal glands and pancreas are unremarkable. There are multiple gallsto mary within the gallbladder. The gallbladder is mildly distended. There is mild pericholecystic infilt ration. No biliary or pancreatic ductal dilatation is noted. There is no peripancreatic infiltration. There is no hydronephrosis. Several subcentimeter bilateral renal lesions are too small to character ize. There is no evidence for a bowel obstruction. Appendix is unremarkable. There is no ascites or l ymphadenopathy. No suspicious osseous lesions are noted. IMPRESSION: 1. Cholelithiasis, mild gallbladder distention and pericholecystic infiltration. These findings sugge st acute cholecystitis. 2. No bowel obstruction. Unremarkable appendix. Electronically signed by: Maurice Marx M.D. 12/12/2018 7:11 AM
[2018-12-12] MEDS ORDERED: MoRPHine SULFATE 10 MG/ML CARP/VIAL IV PRN (07:57)
[2018-12-12] MEDS ORDERED: MECLIZINE HCL 25 MG TAB PO PRN (07:57)
[2018-12-12] MEDS ORDERED: MoRPHine SULFATE 2 MG/ML CARP IV PRN (07:57)
[2018-12-12] MEDS ORDERED: OXYCODONE/ACETAMINOPHEN 5mg/325mg TAB PO PRN ×2 (07:57)
[2018-12-12] MEDS ORDERED: ACETAMINOPHEN 325 MG TAB PO PRN (07:57)
[2018-12-12] MEDS ORDERED: MoRPHine SULFATE 4 MG/ML 1 ML CARP\\VIAL IV PRN (07:57)
[2018-12-12] MEDS ORDERED: PROMETHAZINE HCL 12.5 MG in SODIUM CHLORIDE 0.9% 50 ML IV PRN (07:57)
[2018-12-12] MEDS: LACTATED RINGER'S 1,000 ML IV SCH ×2 (08:15→19:57)
[2018-12-12] MEDS: SERTRALINE HCL 100 MG TABLET PO SCH (08:58)
[2018-12-12] MEDS: LEVOTHYROXINE SODIUM 88 MCG TABLET PO SCH (08:58)
[2018-12-12] MEDS: POTASSIUM CHLORIDE 10 MEQ TABCR PO SCH ×2 (08:59→20:31)
[2018-12-12] MEDS: AMPICILLIN/SULBACTAM SOD 3,000 MG in 0.9 % SODIUM CHLORIDE 100 ML IV SCH ×3 (09:04→20:32)
--- NOTE | 2018-12-12 09:07 | History & Physical Report ---
Date of Service December 12, 2018 Assessment & Plan (1) Acute cholecystitis: 73 year-old female who presented to emergency room this morning with upper abdominal pain, nausea, and vomiting after eating fried chicken last evening. No leukocytosis, lfts, t.bili, lipase all wnl, ct scan showing distended gallbladder with stones and pericholecystic stranding concerning for acute cholecystitis. Abdomen is soft, tender in RUQ and epigastrium Plan: Plan for laparoscopic cholecystectomy possible open by Dr. Estrada today. Discussed with patient procedure and risks including bleeding, infection, injury to surrounding organs/tissues, bile leak, bile duct injury, blood clots, ID, stroke, even . Patient understood and informed consent obtained. Keep NPO continue IV Unasyn Continue IV fluids and pain management Continue IV Zofran prn nausea Potassium 40 meq PO given stat (2) HTN (hypertension): BP 195/79 --> 173/73 -- > 182/89 on admission and this morning Per patient her bp usually stable at home 120/80's. Takes hydrochlorothiazide for edema. Likely secondary to pain however will consult hospitalist for management and preop eval Discussed with hospitalist team, they believe HTN secondary to pain as well will continue to monitor and give agent as needed after pain control, otherwise she is cleared for surgery from their perspective. Dr. Estrada has seen and examined pt, agrees with above. History of Present Illness Chief Complaint: abdominal pain, nausea, and vomiting Primary Care Provider: Tyron Valadez MD Wendi is a pleasant 73 year-old female who presented to emergency department at 0300 with complaint of upper midline abdominal pain, nausea, and vomiting after eating fried chicken last evening for dinner. States around 7 pm she noticed gas and bloating and then started having burning sensation in upper mid abdomen with nausea and dry heaves. Had one episode of vomiting but a lot of dry heaves. States she usually does not eat fried foods and has never had an episode similar to this. No prior history of gallbladder problems and was unaware of having gallstones. States her mother had gallbladder problems as well. Denies of any fever, chills, chest pain, shortness of breath, chest pain at rest or upon walking stairs or long distances, change in bowel habits, diarrhea, constipation, blood in stools, black/tarry stools. States she has history of chronic constipation in which she takes laxative at home to help keep her regular. Last bowel movement was yesterday and normal. Prior history of hysterectomy for uterine tumor about three years ago, laparoscopically. No other abdominal surgeries. No blood thinning agents. History of asthma and allergies in which she takes flonase. ER work-up included labs which showed no leukocytosis and lfts, t. bili, lipase wnl. CT scan of abdomen and pelvis showing distended gallbladder wtih stones and pericholecystic stranding concerning for acute cholecystitis. Wendi states her pain is better since she received IV pain medication down in the ER. Still having some burning pain in the epigastrium. Back pain and rib pain because of the dry heaving. Allergies Allergy/AdvReac Type Severity Reaction Status Date / Time bacitracin Allergy Mild ITCHY Verified 12/12/18 03:56 neomycin Allergy Mild ITCHY Verified 12/12/18 03:56 nickel Allergy Mild RASH Verified 12/12/18 03:56 Sulfa (Sulfonamide AdvReac Intermediate HALLUCINATIONS, Verified 12/12/18 03:56 Antibiotics) "I GET GOOFY" Home Medications Home Medications Medication Instructions Recorded Confirmed Type albuterol sulfate 2 puff INHALATION Q6H PRN 12/12/18 12/12/18 History fluticasone propionate 2 spray INTRANASAL BID 12/12/18 12/12/18 History hydrochlorothiazide 25 mg PO QPM 12/12/18 12/12/18 History ibuprofen 400 - 600 mg PO DIRECTED PRN 12/12/18 12/12/18 History levothyroxine 88 mcg PO DAILY 12/12/18 12/12/18 History meclizine 25 mg PO TID PRN 12/12/18 12/12/18 History naproxen sodium [Aleve] 220 mg PO DIRECTED PRN 12/12/18 12/12/18 History potassium chloride 10 meq PO BID 12/12/18 12/12/18 History sertraline 150 mg PO DAILY 12/12/18 12/12/18 History Past Med/Surg History Medical History Leg edema (Chronic) HTN (hypertension) (Chronic) Asthma (Chronic) Depression (Chronic) Hypothyroidism (Chronic) Complex endometrial hyperplasia with atypia (Chronic) Asthma (Chronic) Constipation (Chronic) Hypothyroidism (Chronic) Seasonal allergies (Chronic) Surgical History S/P cataract surgery (Resolved) H/O dilation and curettage (Resolved) S/P breast biopsy (Resolved) S/P laparoscopic hysterectomy (Chronic) Status post bilateral salpingo-oophorectomy (Chronic) History of bilateral salpingo-oophorectomy History of breast biopsy History of hysterectomy for cancer Social History Preferred Language: Wolof Communication Ability: Effective Dry Dip Worker Required: Yes Beliefs That Will Affect Care: None Current Living Situation: Spouse Other Information That Helps Us Care for You: No Feels Safe at Home: Yes Safety Concerns: Feels Safe At This Time Smoking Status: Former smoker Smoking End Date: 1996 ; Hx Alcohol Use: No Hx Substance Use: No Review of Systems Review of Systems: All systems reviewed & are unremarkable except as noted in HPI & below Physical Exam Constitutional: WD/WN, vitals as above no acute distress Respiratory: normal respiratory effort, lungs clear to auscultation Cardiovascular: RRR, no murmur, no edema Gastrointestinal (Abdomen): Inspection/Auscultation: normal bowel sounds; abdomen not distended Percussion/Palpation: + abdomen tender (RUQ and epigastrium) and abdomen soft; no guarding and abdomen not rigid Skin: no rashes, warm and dry Psychiatric: A+Ox3, euthymic affect Results & Data Vital Signs (Past 12 Hours) Vital Signs Temp Pulse Pulse Resp BP BP Pulse Ox 12/12/18 08:00 36.4 C L 56 L 18 162/65 H 95 12/12/18 07:05 56 L 20 182/89 H 94 12/12/18 06:03 36.6 C 50 L 173/73 H 93 12/12/18 03:34 36.6 C 59 L 16 195/79 H 95 Laboratory Results 12/12/18 12/12/18 12/12/18 Range/Units 06:45 06:40 04:12 WBC (4.8-10.8) K/uL RBC (4.2-5.4) M/uL Hgb (12.0-16.0) g/dL POC Hgb 15.3 (12.0-16.0) g/dl Hct (37-47) % POC Hct 45 (37-47) % MCV (80-100) fL MCH (25-34) pg MCHC (32-36) g/dL RDW Std Deviation (36.4-46.3) fL RDW Coeff of Jose Antonio (11.5-14.5) % Plt Count (130-400) K/uL MPV (7.4-10.4) fL Immature Gran % (Auto) % Neut % (Auto) % Lymph % (Auto) % [place] % (Auto) % Eos % (Auto) % Baso % (Auto) % Immature Gran # (Auto) (0.00-0.02) K/uL Neut # (Auto) (1.4-6.5) K/uL Lymph # (Auto) (1.2-3.4) K/uL [place] # (Auto) (0.11-0.59) K/uL Eos # (Auto) (0-0.5) K/uL Baso # (Auto) (0-0.2) K/uL PT 10.7 (9.0-12.0) Seconds INR 1.0 (0.9-1.1) APTT 26.6 (21.0-31.0) Seconds PTT Ratio 1.0 POC Sodium 139 (135-144) mEq/L Sodium (136-145) mmol/L POC Potassium 3.0 L (3.3-5.0) mEq/L Potassium (3.5-5.1) mmol/L POC Chloride 98 L (101-112) mEq/L Chloride (98-107) mmol/L Carbon Dioxide (21-32) mmol/L POC Total CO2 29 (24-31) mEq/l Anion Gap (3-11) POC Anion Gap 16.0 (16-25) mmol/L POC BUN 8 (7-18) mg/dl BUN (7-18) mg/dl Creatinine (0.6-1.2) mg/dl POC Creatinine 0.8 (0.6-1.3) mg/dl Est Cr Clr Drug Dosing ml/min Est GFR ( Amer) Est GFR (Non-Af Amer) BUN/Creatinine Ratio (10-20) Glucose (70-99) mg/dl POC Glucose (other) 147 H (70-99) mg/dl Calcium (8.5-10.1) mg/dl POC Ioniz Calcium Rah 1.16 (1.12-1.32) mmol/l Total Bilirubin (0.2-1) mg/dl Direct Bilirubin (0-0.2) mg/dl AST (15-37) U/L ALT (12-78) U/L Alkaline Phosphatase (45-117) U/L Troponin I (0-0.045) ng/ml Total Protein (6.4-8.2) gm/dl Albumin (3.4-5.0) gm/dl Lipase (73-393) U/L Urine Color Yellow Urine Appearance Clear (Clear) Urine pH 7.5 (4.5-7.5) Ur Specific [place] > 1.045 H (1.000-1.030) Urine Protein Negative (Negative) Urine Glucose (UA) Negative (Negative) Urine Ketones Trace H (Negative) Urine Blood Negative (Negative) Urine Nitrite Negative (Negative) Urine Bilirubin Negative (Negative) Urine Urobilinogen Negative (Negative) Ur Leukocyte Esterase Negative (Negative) 12/12/18 12/12/18 Range/Units 04:05 04:05 WBC 10.20 (4.8-10.8) K/uL RBC 5.10 (4.2-5.4) M/uL Hgb 15.1 (12.0-16.0) g/dL POC Hgb (12.0-16.0) g/dl Hct 44.5 (37-47) % POC Hct (37-47) % MCV 87.3 (80-100) fL MCH 29.6 (25-34) pg MCHC 33.9 (32-36) g/dL RDW Std Deviation 42.7 (36.4-46.3) fL RDW Coeff of Jose Antonio 13.5 (11.5-14.5) % Plt Count 321 (130-400) K/uL MPV 11.7 H (7.4-10.4) fL Immature Gran % (Auto) 0.2 % Neut % (Auto) 89.7 % Lymph % (Auto) 7.9 % [place] % (Auto) 1.8 % Eos % (Auto) 0.0 % Baso % (Auto) 0.4 % Immature Gran # (Auto) 0.02 (0.00-0.02) K/uL Neut # (Auto) 9.15 H (1.4-6.5) K/uL Lymph # (Auto) 0.81 L (1.2-3.4) K/uL [place] # (Auto) 0.18 (0.11-0.59) K/uL Eos # (Auto) 0.00 (0-0.5) K/uL Baso # (Auto) 0.04 (0-0.2) K/uL PT (9.0-12.0) Seconds INR (0.9-1.1) APTT (21.0-31.0) Seconds PTT Ratio POC Sodium (135-144) mEq/L Sodium 138 (136-145) mmol/L POC Potassium (3.3-5.0) mEq/L Potassium 3.0 L (3.5-5.1) mmol/L POC Chloride (101-112) mEq/L Chloride 100 (98-107) mmol/L Carbon Dioxide 31 (21-32) mmol/L POC Total CO2 (24-31) mEq/l Anion Gap 7.0 (3-11) POC Anion Gap (16-25) mmol/L POC BUN (7-18) mg/dl BUN 10 (7-18) mg/dl Creatinine 0.91 (0.6-1.2) mg/dl POC Creatinine (0.6-1.3) mg/dl Est Cr Clr Drug Dosing 60.6 ml/min Est GFR ( Amer) 71.5 Est GFR (Non-Af Amer) 61.7 BUN/Creatinine Ratio 10.5 (10-20) Glucose 142 H (70-99) mg/dl POC Glucose (other) (70-99) mg/dl Calcium 9.2 (8.5-10.1) mg/dl POC Ioniz Calcium Rah (1.12-1.32) mmol/l Total Bilirubin 0.8 (0.2-1) mg/dl Direct Bilirubin 0.2 (0-0.2) mg/dl AST 18 (15-37) U/L ALT 25 (12-78) U/L Alkaline Phosphatase 90 (45-117) U/L Troponin I < 0.015 (0-0.045) ng/ml Total Protein 7.5 (6.4-8.2) gm/dl Albumin 4.1 (3.4-5.0) gm/dl Lipase 75 (73-393) U/L Urine Color Urine Appearance (Clear) Urine pH (4.5-7.5) Ur Specific [place] (1.000-1.030) Urine Protein (Negative) Urine Glucose (UA) (Negative) Urine Ketones (Negative) Urine Blood (Negative) Urine Nitrite (Negative) Urine Bilirubin (Negative) Urine Urobilinogen (Negative) Ur Leukocyte Esterase (Negative) Diagnostic Findings CT OF THE ABDOMEN AND PELVIS WITH CONTRAST CLINICAL HISTORY: epigastric pain, vomiting COMPARISON STUDY: None. TECHNIQUE: Following IV administration of 92 mL of Optiray-320, axial images of the abdomen and pelvis were obtained from the lung bases to the proximal femurs. Images were reviewed in the axial, sagittal, and coronal planes. IV contrast was administered without complication. Automated exposure control was utilized for the study. A dose lowering technique was utilized adhering to the princip les of ASHLEY. CT DOSE: 1161.22 mGy.cm FINDINGS: The liver, spleen, adrenal glands and pancreas are unremarkable. There are multiple gallstones within the gallbladder. The gallbladder is mildly dis tended. There is mild pericholecystic infiltration. No biliary or pancreatic ductal dilatation is noted. There is no peripancreatic infiltration. There is no hydronephrosis. Several subcentimeter bilateral renal lesions are too small to characterize. There is no evidence for a bowel obstruction. Appendix is unremarkable. There is no ascites or lymphadenopathy. No suspicious osseous lesions are noted. IMPRESSION: 1. Cholelithiasis, mild gallbladder distention and pericholecystic infiltration. These findings suggest acute cholecystitis. 2. No bowel obstruction. Unremarkable appendix. Code Status & VTE Plan VTE Prophylaxis Plan VTE Prophylaxis will be ordered: Yes
[2018-12-12] MEDS ORDERED: ALBUTEROL HFA 8 GM INHALER INH PRN (09:19)
--- NOTE | 2018-12-12 09:22 | Consultation ---
Date of Consultation December 12, 2018 Assessment & Plan (1) Acute cholecystitis: Pt is 73 y/o F with PMH allergic rhinitis, asthma, depression, hypothyroidism seen in medical consultation for pre-op evaluation. Pt presented with nausea, vomiting and epigastric pain after eating fried chicken. CT abd/pelvis: cholelithiasis, mild gallbladder distention and pericholecystic infiltration. LFTs WNL, no leukocytosis. EKG sinus bradycardia, nonspecific ST changes She was given Mefoxin in ER. Pt with no history CAD, CHF, CVA, DM, CKD. Advanced age risk factor. Pt low risk for cardiac event -agree with Unasyn -NPO -planned for surgery today -pain management per general surgery -DVT prophylaxis per general surgery - SCDs -incentive spirometry -monitor cbc, bmp (2) Hypokalemia: K: 3.0 -Replace and monitor (3) HTN (hypertension): BP elevated at 162/65 Likely secondary to pain, anxiety -Pain control -Monitor BP -May need to add additional agent (4) Leg edema: No significant edema -Hold HCTZ as is NPO (5) Asthma: No wheezing, SOB Reports uses Flovent -Continue albuterol prn (6) Hypothyroidism: -Continue levothyroxine (7) Depression: Stable -Continue sertraline DVT Prophylaxis -SCDs Follows with Dr Valadez for routine care Pt was seen and care coordinated with Dr Umana. See addendum Thank you for this consultation. We will follow the patient with you during their hospital stay. You can reach a member of the [facility] Team 10/10 via pager @ [phone]. Supervising Physician Co-Signing Physician Notes Pt was seen and examined. Agreed with Lety CHAUHAN exam, assessment and plan. 73 y/o F with PMH allergic rhinitis, asthma, depression, hypothyroidism presented to ER with abdominal pain associated with nausea and vomiting after eating fried chicken. CT abd/pelvis showed cholelithiasis, mild gallbladder distention and pericholecystic infiltration. These findings suggest acute cholecystitis. [facility] and medical management. Pt is stable to proceed with the procedure. Keep NPO for now. Plan for cholecystectomy today. Will continue follow after the surgery. MD Lyndsay History of Present Illness Reason for Consultation: Pre-op evaluation Attending Physician: Jose Marshall MD History of Present Illness Pt is 73 y/o F with PMH allergic rhinitis, asthma, depression, hypothyroidism seen in medical consultation for pre-op evaluation. Pt presented to ER today in the online merchandising manager hours for nausea, vomiting and epigastric pain after eating fried chicken. In ER had CT abd/pelvis showing cholelithiasis, mild gallbladder distention and pericholecystic infiltration. Had normal LFTs and no leukocytosis. She was given Mefoxin in ER. Currently pt reports epigastric and RUQ pain and rates 6/10 on pain scale. She reports feeling a little anxious of learning about her gallbladder and likely surgical intervention. Reports is on HCTZ for LE edema. Denies CAD hx, h/o CHF, TIA/Stroke, DM, CKD. Denies fever/chills, diaphoresis, diarrhea, WARNER, dizziness, syncope, vision changes, neck pain, CP, SOB, orthopnea, palpitations, cough, sore throat, choking, otalgia, rhinorrhea, paresthesias, weakness, extremity weakness, extremity edema, rashes, urinary symptoms. Allergies Allergy/AdvReac Type Severity Reaction Status Date / Time bacitracin Allergy Mild ITCHY Verified 12/12/18 03:56 neomycin Allergy Mild ITCHY Verified 12/12/18 03:56 nickel Allergy Mild RASH Verified 12/12/18 03:56 Sulfa (Sulfonamide AdvReac Intermediate HALLUCINATIONS, Verified 12/12/18 03:56 Antibiotics) "I GET GOOFY" Home Medications Home Medications Medication Instructions Recorded Confirmed Type albuterol sulfate 2 puff INHALATION Q6H PRN 12/12/18 12/12/18 History fluticasone propionate 2 spray INTRANASAL BID 12/12/18 12/12/18 History hydrochlorothiazide 25 mg PO QPM 12/12/18 12/12/18 History ibuprofen 400 - 600 mg PO DIRECTED PRN 12/12/18 12/12/18 History levothyroxine 88 mcg PO DAILY 12/12/18 12/12/18 History meclizine 25 mg PO TID PRN 12/12/18 12/12/18 History naproxen sodium [Aleve] 220 mg PO DIRECTED PRN 12/12/18 12/12/18 History potassium chloride 10 meq PO BID 12/12/18 12/12/18 History sertraline 150 mg PO DAILY 12/12/18 12/12/18 History oxycodone-acetaminophen 1 tab PO Q4H PRN #18 tab 12/13/18 Rx Patient History Medical History Leg edema (Chronic) HTN (hypertension) (Chronic) Asthma (Chronic) Depression (Chronic) Hypothyroidism (Chronic) Complex endometrial hyperplasia with atypia (Chronic) Asthma (Chronic) Constipation (Chronic) Hypothyroidism (Chronic) Seasonal allergies (Chronic) Surgical History S/P cataract surgery (Resolved) H/O dilation and curettage (Resolved) S/P breast biopsy (Resolved) S/P laparoscopic hysterectomy (Chronic) Status post bilateral salpingo-oophorectomy (Chronic) History of bilateral salpingo-oophorectomy History of breast biopsy History of hysterectomy for cancer Social History Preferred Language: Azeri Communication Ability: Effective Vessel Manager Required: Yes Beliefs That Will Affect Care: None Current Living Situation: Spouse Other Information That Helps Us Care for You: No Feels Safe at Home: Yes Safety Concerns: Feels Safe At This Time Smoking Status: Former smoker Smoking End Date: 1996 ; Hx Alcohol Use: No Hx Substance Use: No Review of Systems Review of Systems: All systems reviewed & are unremarkable except as noted in HPI & below Physical Exam Physical Exam: General: no acute distress, WDWN Head: normocephalic, atraumatic Eyes: PERRL, EOM's intact, conjunctiva non-injected, anicteric ENT: normal inspection external ears, nose, mucous membranes moist Neck: supple, trachea midline Lungs: clear, no respiratory distress, no wheezing/rhonchi/rales CV: RRR, no murmur, no pretibial edema Abd: normal BS, soft, +tenderness to epigastric and RUQ without rebound Ext: no cyanosis, no calf tenderness Neuro: A&O x 3, no focal deficits noted, normal affect Skin: warm, dry Results & Data Vital Signs (Past 12 Hours) Vital Signs Temp Pulse Pulse Resp BP BP Pulse Ox 12/12/18 08:00 36.4 C L 56 L 18 162/65 H 95 12/12/18 07:05 56 L 20 182/89 H 94 12/12/18 06:03 36.6 C 50 L 173/73 H 93 12/12/18 03:34 36.6 C 59 L 16 195/79 H 95 Laboratory Results Short CBC 12/12/18 Range/Units 04:05 WBC 10.20 (4.8-10.8) K/uL Hgb 15.1 (12.0-16.0) g/dL Hct 44.5 (37-47) % Plt Count 321 (130-400) K/uL BMP 12/12/18 04:05 Sodium 138 Potassium 3.0 L Chloride 100 Carbon Dioxide 31 BUN 10 Creatinine 0.91 Glucose 142 H Calcium 9.2 Cardiac Enzymes 12/12/18 Range/Units 04:05 Troponin I < 0.015 (0-0.045) ng/ml Liver Function 12/12/18 Range/Units 04:05 Total Bilirubin 0.8 (0.2-1) mg/dl Direct Bilirubin 0.2 (0-0.2) mg/dl AST 18 (15-37) U/L ALT 25 (12-78) U/L Alkaline Phosphatase 90 (45-117) U/L Albumin 4.1 (3.4-5.0) gm/dl Urine 12/12/18 Range/Units 06:45 Urine Color Yellow Urine Appearance Clear (Clear) Urine pH 7.5 (4.5-7.5) Ur Specific [place] > 1.045 H (1.000-1.030) Urine Protein Negative (Negative) Urine Glucose (UA) Negative (Negative) Diagnostic Findings CXR: IMPRESSION: No acute process. CT ABD/PELVIS: IMPRESSION: 1. Cholelithiasis, mild gallbladder distention and pericholecystic infiltration. These findings suggest acute cholecystitis. 2. No bowel obstruction. Unremarkable appendix.
[2018-12-12] MEDS ORDERED: POTASSIUM CHLORIDE 20 MEQ TABCR PO STA (09:29)
[2018-12-12] MEDS ORDERED: ONDANSETRON INJ 2 MG/ML 2 ML VIAL ONE (10:18)
[2018-12-12] MEDS ORDERED: NEOSTIGMINE METHYLSULFATE 5 MG/5 ML SYR ONE (10:18)
[2018-12-12] MEDS ORDERED: MIDAZOLAM HCL 1 MG/ML 2ML VIAL ONE (10:18)
[2018-12-12] MEDS ORDERED: LIDOCAINE HCL 2% 2 ML VIAL/AMP(20MG/ML) INFIL ONE (10:18)
[2018-12-12] MEDS ORDERED: PROPOFOL IV EMULSION 10 MG/ML 20 ML VIAL IV ONE (10:18)
[2018-12-12] MEDS ORDERED: DEXAMETHASONE SOD INJ 4 MG/ML VIAL ONE (10:18)
[2018-12-12] MEDS ORDERED: GLYCOPYRROLATE 0.2 MG/ML VIAL ONE ×2 (10:18→12:22)
[2018-12-12] MEDS ORDERED: fentaNYL citrate 100 MCG/2 ML VIAL ONE (10:18)
[2018-12-12] MEDS ORDERED: BUPIVACAINE 0.5 % 5 MG/1 ML MPF 30ML VIAL ONE (10:30)
[2018-12-12] MEDS ORDERED: LIDOCAINE HCL 1% 20 ML VIAL ONE (10:30)
[2018-12-12] MEDS ORDERED: CEFAZOLIN 2000MG 2,000 MG/15 ML SYR IV ONE (10:32)
--- NOTE | 2018-12-12 10:32 | History & Physical Bridge Note ---
Date of Service December 12, 2018 History & Physical Bridge Note I have examined the patient, reviewed the History & Physical and in the interval since the performance of the History & Physical I have noted the following changes of clinical significance: no changes noted
--- NOTE | 2018-12-12 10:46 | Anesthesiology Consultation ---
Date of Service December 12, 2018 Assessment & Plan (1) Encounter for pre-operative examination: History Surgery Operation Date: 12/12/18 07:00 Proposed Procedures p Laparoscopic Cholecystectomy without Cholangiogram - Francisca Estrada MD Height/Weight Height: 5 ft 5 in Weight: 94.6 kg Allergies Allergy/AdvReac Type Severity Reaction Status Date / Time bacitracin Allergy Mild ITCHY Verified 12/12/18 03:56 neomycin Allergy Mild ITCHY Verified 12/12/18 03:56 nickel Allergy Mild RASH Verified 12/12/18 03:56 Sulfa (Sulfonamide AdvReac Intermediate HALLUCINATIONS, Verified 12/12/18 03:56 Antibiotics) "I GET GOOFY" Medications Home Medications Medication Instructions Recorded Confirmed Last Taken albuterol sulfate 2 puff INHALATION Q6H PRN 12/12/18 12/12/18 Unknown fluticasone propionate 2 spray INTRANASAL BID 12/12/18 12/12/18 12/11/18 hydrochlorothiazide 25 mg PO QPM 12/12/18 12/12/18 12/10/18 ibuprofen 400 - 600 mg PO DIRECTED PRN 12/12/18 12/12/18 Unknown levothyroxine 88 mcg PO DAILY 12/12/18 12/12/18 12/11/18 meclizine 25 mg PO TID PRN 12/12/18 12/12/18 Unknown naproxen sodium [Aleve] 220 mg PO DIRECTED PRN 12/12/18 12/12/18 Unknown potassium chloride 10 meq PO BID 12/12/18 12/12/18 12/11/18 sertraline 150 mg PO DAILY 12/12/18 12/12/18 12/11/18 Active Medications Generic Name Dose Route Start Last Admin Trade Name Freq PRN Reason Stop Dose Admin Fentanyl Citrate 50 mcg 12/12/18 06:34 12/12/18 07:16 Fentanyl Citrate IV 12/26/18 06:33 50 mcg Q15M PRN Administration Pain Lactated Ringer's 1,000 mls @ 80 mls/hr 12/12/18 08:15 12/12/18 08:15 Lr IV 01/11/19 08:14 80 mls/hr .[id number] RICKY Administration Ampicillin Sodium/Sulbactam 108 mls @ 200 mls/hr 12/12/18 09:00 12/12/18 09 :32 Sodium 3,000 mg/ Sodium IV 12/22/18 08:59 Infused Chloride Q6H RICKY Infusion Protocol Levothyroxine Sodium 88 mcg 12/12/18 09:00 12/12/18 08:58 Synthroid PO 01/11/19 08:59 88 mcg DAILYBB RICKY Administration Morphine Sulfate 4 mg 12/12/18 07:57 12/12/18 09:36 Morphine Sulfate IV 12/26/18 07:56 4 mg Q3H PRN Administration SEVERE Pain (Scale 7,8,9,10) Potassium Chloride 10 meq 12/12/18 09:00 12/12/18 08:59 Klor-Con M10 PO 01/11/19 08:59 10 meq BID RICKY Administration Sertraline HCl 150 mg 12/12/18 09:00 12/12/18 08:58 Zoloft PO 01/11/19 08:59 150 mg DAILY RICKY Administration NPO Date Last Intake of Fluids: 12/11/18 Time Last Intake of Fluids: 17:00 Date Last Intake of Solids: 12/11/18 Time Last Intake of Solids: 13:00 Past Medical History Medical History Leg edema (Chronic) HTN (hypertension) (Chronic) Asthma (Chronic) Depression (Chronic) Hypothyroidism (Chronic) Complex endometrial hyperplasia with atypia (Chronic) Asthma (Chronic) Constipation (Chronic) Hypothyroidism (Chronic) Seasonal allergies (Chronic) Past Surgical History Surgical History S/P cataract surgery (Resolved) H/O dilation and curettage (Resolved) S/P breast biopsy (Resolved) S/P laparoscopic hysterectomy (Chronic) Status post bilateral salpingo-oophorectomy (Chronic) History of bilateral salpingo-oophorectomy History of breast biopsy History of hysterectomy for cancer Social History Smoking Status: Former smoker Smoking End Date: 1996 Hx Alcohol Use: No Hx Substance Use: No substance use type: does not use Physical Exam Vital Signs Last Vital Signs Temp 36.9 C 12/12/18 10:05 Pulse 51 L 12/12/18 10:05 Resp 20 12/12/18 10:05 BP 153/67 H 12/12/18 10:05 Pulse Ox 96 12/12/18 10:05 Testing Laboratory Results 12/12/18 04:05 12/12/18 04:05 PT 10.7 Seconds (9.0-12.0) 12/12/18 06:40 INR 1.0 (0.9-1.1) 12/12/18 06:40 APTT 26.6 Seconds (21.0-31.0) 12/12/18 06:40 Urine Color Yellow 12/12/18 06:45 Urine Appearance Clear (Clear) 12/12/18 06:45 Urine pH 7.5 (4.5-7.5) 12/12/18 06:45 Ur Specific [place] > 1.045 (1.000-1.030) H 12/12/18 06:45 Urine Protein Negative (Negative) 12/12/18 06:45 Urine Glucose (UA) Negative (Negative) 12/12/18 06:45 Urine Ketones Trace (Negative) H 12/12/18 06:45 Urine Nitrite Negative (Negative) 12/12/18 06:45 Ur Leukocyte Esterase Negative (Negative) 12/12/18 06:45 12/12/18 04:12 POC Glucose (other) 147 H Electrocardiogram Date: 12/12/18 Findings: + SB @ hr 52, nsst
[2018-12-12] MEDS ORDERED: ATROPINE SULFATE 0.1 MG/ML 10ML SYR IV PRN (10:48)
[2018-12-12] MEDS ORDERED: ePHEDrine sulfate 50 MG/ML AMP IV PRN (10:48)
[2018-12-12] MEDS ORDERED: HYDROmorphone INJ 1 MG/ML SYRINGE IV PRN (10:48)
[2018-12-12] MEDS ORDERED: SUCCINYLCHOLINE CHLORIDE 20 MG/ML 10 ML VIAL ONE (11:27)
[2018-12-12] MEDS ORDERED: ROCURONIUM BROMIDE 10 MG/ML 5 ML VIAL ONE (11:27)
[2018-12-12] MEDS ORDERED: KETOROLAC 30 MG/ML VIAL ONE (12:17)
--- NOTE | 2018-12-12 12:22 | Post Operative Brief Note ---
Immediate Post Op Note v1 Date of Surgery December 12, 2018 Pre & Post Diagnosis Operation Date: 12/12/18 07:00 Pre-Op Diagnosis: ACUTE CHOLECYSTITIS, cholelithiasis Post-Op Diagnosis: ACUTE CHOLECYSTITIS, cholelithiasis Procedure Operation Date: 12/12/18 07:00 Actual Procedures p Laparoscopic Cholecystectomy without Cholangiogram(Not Applicable) - Francisca Estrada MD Surgeon Francisca Estrada MD Director Dance ROSALIND Bates Estimated Blood Loss 20 Findings Consistent with Post-Op Diagnosis significant inflammation on gallbladder wall, with edema Fluids 1200ml Specimens gallbladder Anesthesia Type General Complications none Disposition Accompanied Patient To Recovery: Yes Disposition: Recovery Room Overlapping Procedure I was immediately available: during the entire case.
--- NOTE | 2018-12-12 13:07 | Operative Report ---
DATE OF OPERATION: 12/12/2018 PREOPERATIVE DIAGNOSES: Acute cholecystitis, cholelithiasis. POSTOPERATIVE DIAGNOSIS: Acute cholecystitis, cholelithiasis. OPERATION: Laparoscopic cholecystectomy. SURGEON: Francisca Estrada MD. CERTIFIED TECHNICIAN: Dalia Medrano PA-C. ANESTHESIA: General. ESTIMATED BLOOD LOSS: About 20 mL. FINDINGS: Acute cholecystitis with significant inflammation on the gallbladder wall, gallbladder wall edema, thickening. COMPLICATIONS: None. INDICATIONS FOR THE PROCEDURE: This is a 73-year-old female who was admitted to hospital for acute cholecystitis with gallstone and patient required to do laparoscopic cholecystectomy, possible open, possible cholangiogram. I did talk to the patient about the benefit and risk, alternate procedure. I indicated the risks may include but not limited such as bleeding, infection, injury to common bile duct, injury to the bowel, may need ERCP, myocardial infarction, DVT, stroke, even . The patient understands that she signed informed consent and I answered all questions. DETAILS OF PROCEDURE: We brought the patient to the OR, put the patient in the supine position. The patient received SCD on bilateral legs to prevent DVT. Also, patient received one dose and then saline IV for prophylactic antibiotic. The patient received general anesthesia by the Anesthesiology without difficulty. The abdomen was appropriately draped in routine sterile fashion. After timeout, I injected local anesthesia by using 1% lidocaine mixed with 0.5% Marcaine just above umbilicus. Then I made a small incision just above umbilicus, opened fascia and opened peritoneum under direct vision, put a Kristopher trocar in, connected to CO2 to create pneumoperitoneum. Flow rate at 6 liter per minute. Pressure not more than 14 mmHg. Once we got a nice pneumoperitoneum, we put the camera in, looked around the abdomen, shows normal finding on the liver. However, the gallbladder showing significant inflammation with gallbladder wall thickening, edema, omental covers the gallbladder, confirmed diagnosis of acute cholecystitis. Then, we put another two 5 mm trocar on the right upper quadrant, one is 11 trocar on the epigastric area. Once all trocars in, we put a grasper to hold the base of gallbladder, put direction to the diaphragm and then we peeled down the omental covers of the gallbladder. Then, we put another grasper to hold the pouch of gallbladder to expunge triangle of Calot and the cystic duct was identified and mobilized. I put two 10 mm metal clips on the proximal cystic duct, one on the distal cystic duct and used a scissor for transection of cystic duct. Rechecked, no active bleeding, no bile leak. The cystic artery was identified and mobilized. I put two 5 mm metal clip on the proximal cystic artery, 1 on the distal cystic artery, used a scissor for transection of cystic artery. Rechecked, no active bleeding. Then we used the Bovie to take down gallbladder from the liver bed. Rechecked, no active bleeding, no bile leak from the liver bed. Then we removed gallbladder through the catch bag then we reinserted Kristopher trocar in, connected to CO2 to create pneumoperitoneum, again looked around the abdomen, no bile leak and no active bleeding from the liver bed. Pneumoperitoneum was released. Then we removed all trocars under direct vision. No active bleeding from the trocar sites. Pneumoperitoneum was released and closed the umbilical incision, fascial layer by using #1 Vicryl [id number] x2, closed subcutaneous layer by using 2-0 Vicryl interrupted layer, closed skin by using 4-0 Vicryl continuous running, closed the 11 trocar site fascial layer by using #1 Vicryl [id number] x2, subcutaneous layer by using 2-0 Vicryl interrupted, closed skin by using 4-0 Vicryl interrupted, and closed another two 5 mm trocar site skin only by using 4-0 Vicryl. Then we put the dressing on. The patient tolerated the procedure well. All instrument, needle and sponge count were correct x2 at the end of the case. The patient transferred to recovery room in stable condition. Specimen sent to pathology. I attest to the content of the Intraoperative Record and any orders documented therein. Any exception s are noted below.
--- NOTE | 2018-12-12 13:26 | Anesthesiology Progress Note ---
Date of Service December 12, 2018 Anesthesia Post Procedure Vital Signs Vital Signs: Temp Pulse Pulse Resp BP BP Pulse Ox 12/12/18 13:20 53 L 16 155/63 H 94 12/12/18 13:10 55 L 16 151/62 H 100 12/12/18 13:00 61 16 147/67 H 100 12/12/18 12:52 36.4 C L 81 16 153/62 H 99 12/12/18 10:05 36.9 C 51 L 20 153/67 H 96 12/12/18 08:00 36.4 C L 56 L 18 162/65 H 95 12/12/18 07:05 56 L 20 182/89 H 94 12/12/18 06:03 36.6 C 50 L 173/73 H 93 12/12/18 03:34 36.6 C 59 L 16 195/79 H 95 Pain Intensity Abdomen: Pain Intensity: 4 Transfer of Care Handoff Completed per policy Notes Mental Status: alert / awake / arousable and participated in evaluation Patient Amnestic to Procedure: Yes Nausea / Vomiting: adequately controlled Pain: adequately controlled Airway Patency, RR, SpO2: stable & adequate BP & HR: stable & adequate Hydration State: stable & adequate Anesthetic Complications: no major complications apparent and Pt Satisfied with anesthetic care
[2018-12-12] MEDS ORDERED: NAPROXEN SODIUM 220 MG PO PRN (13:56)
[2018-12-12] MEDS ORDERED: IBUPROFEN 200 MG TAB PO PRN (13:56)
[2018-12-12] MEDS: FLUTICASONE PROPIONATE NA SPR 16 GM BTL NAE SCH (19:58)
[2018-12-12] MEDS: hydroCHLOROthiazide 25 MG TAB PO SCH (20:31)
[2018-12-13] MEDS: AMPICILLIN/SULBACTAM SOD 3,000 MG in 0.9 % SODIUM CHLORIDE 100 ML IV SCH ×4 (03:42→21:02)
[2018-12-13] MEDS: LEVOTHYROXINE SODIUM 88 MCG TABLET PO SCH (05:58)
[2018-12-13 07:07] LABS: Hematocrit (blood only) 38.6 % (37-47); Hemoglobin 12.4 g/dL (12.0-16.0); Mean Corpuscular Hemoglobin 28.9 pg (25-34); Mean Corpuscular Hgb Conc 32.1 g/dL (32-36); Mean Platelet Volume 11.6 fL (7.4-10.4); Platelet Count 238 K/uL (130-400); RDW Coefficient of Variation 14.3 % (11.5-14.5); RDW Standard Deviation 46.7 fL (36.4-46.3); Red Blood Count 4.29 M/uL (4.2-5.4); White Blood Count 7.11 K/uL (4.8-10.8)
[2018-12-13 07:35] LABS: Albumin Level 3.2 gm/dl (3.4-5.0); BUN Creatinine Ratio 8.1 (10-20); Calcium 8.2 mg/dl (8.5-10.1); Creatinine Clr Calc Pharmacy 56.4 ml/min; Est GFR (African American) 65.4; Est GFR (Non-African American) 56.4; Potassium 2.8 mmol/L (3.5-5.1)
[2018-12-13 07:41] LABS: Albumin Globulin Ratio 1.2 (0.9-2); Bilirubin,Total 0.9 mg/dl (0.2-1); Globulin 2.6 gm/dl (2.5-4.0); Total Protein 5.8 gm/dl (6.4-8.2)
[2018-12-13] MEDS: FLUTICASONE PROPIONATE NA SPR 16 GM BTL NAE SCH ×2 (08:08→21:04)
[2018-12-13] MEDS: SERTRALINE HCL 100 MG TABLET PO SCH (08:08)
[2018-12-13] MEDS ORDERED: POTASSIUM CHLORIDE 20 MEQ TABCR PO STA (08:09)
[2018-12-13] MEDS: POTASSIUM CHLORIDE 10 MEQ TABCR PO SCH ×2 (08:40→21:03)
[2018-12-13] MEDS: POTASSIUM CHLORIDE / WTR 10 MEQ/100 ML PLCT IV SCH ×2 (08:41→10:13)
[2018-12-13] MEDS: LACTATED RINGER'S 1,000 ML IV SCH (08:45)
--- NOTE | 2018-12-13 11:13 | Hospitalist Progress Note ---
Date of Service December 13, 2018 Assessment & Plan (1) Acute cholecystitis: Post op day# 1 S/P lap singh by Dr Estrada -pain management per general surgery -DVT prophylaxis per ortho -incentive spirometry -H&H stable -Unasyn -Liquid diet advanced to regular diet today by surgery -DVT prophylaxis per general surgery - SCDs -monitor CBC, BMP (2) Hypokalemia: K: 2.8 -Replace and monitor (3) HTN (hypertension): Improved after pain control and surgery -Monitor BP (4) Leg edema: No significant edema -Resume HCTZ (5) Asthma: No wheezing, SOB Reports uses Flovent -Continue albuterol prn (6) Hypothyroidism: -Continue levothyroxine (7) Depression: Stable -Continue sertraline DVT Prophylaxis -SCDs Supervising Physician Co-Signing Physician Notes Pt was seen and examined. Agreed with Lety CHAUHAN exam, assessment and plan. S/P day #[address] Estrada. No post-op complication. Diet advanced as tolerated. Potassium 2.8 today and replaced. Continue incentive spirometry. H/H stable. Continue pain control. Continue monitor closely. MD Lyndsay Subjective Pt seen and examined. Sitting up in bedside chair. POD #1 s/p laparoscopic cholecystectomy. Reports feels good this morning and only have minimal abdominal discomfort. Denies any nausea or vomiting. No BM today, feels like passing a little flatus. Is eager to start diet. Denies fever/chills, diaphoresis, WARNER, dizziness, syncope, vision changes, neck pain, CP, SOB, orthopnea, palpitations, cough, choking, paresthesias, weakness, extremity edema, rashes, urinary symptoms. Review of Systems Review of Systems: All systems reviewed & are unremarkable except as noted in HPI & below Physical Exam Physical Exam: General: no distress, WDWN Head: normocephalic, atraumatic Eyes: conjunctiva non-injected, anicteric ENT: normal inspection external ears, nose, mucous membranes moist Neck: supple, trachea midline Lungs: clear, no respiratory distress, no wheezing/rhonchi/rales CV: RRR, no murmur, no pretibial edema Abd: +dressing in place to surgical site wounds and are dry, normal BS, soft, non-tender to light tenderness to palpation Ext: no cyanosis, no calf tenderness Neuro: A&O x 3, no focal deficits noted, normal affect Skin: warm, dry Results & Data Vital Signs (Past 12 Hours) Vital Signs Temp Pulse Pulse Resp BP Pulse Ox 12/13/18 07:16 37 C 59 L 17 120/60 91 12/13/18 03:51 36.9 C 57 L 16 110/61 93 12/12/18 23:18 36.5 C 67 18 115/63 95 Laboratory Results Short CBC 12/13/18 Range/Units 06:27 WBC 7.11 (4.8-10.8) K/uL Hgb 12.4 (12.0-16.0) g/dL Hct 38.6 (37-47) % Plt Count 238 (130-400) K/uL BMP 12/13/18 06:27 Sodium 140 Potassium 2.8 L Chloride 103 Carbon Dioxide 31 BUN 8 Creatinine 0.98 Glucose 85 Calcium 8.2 L Liver Function 12/13/18 Range/Units 06:27 Total Bilirubin 0.9 (0.2-1) mg/dl AST 30 (15-37) U/L ALT 32 (12-78) U/L Alkaline Phosphatase 65 (45-117) U/L Albumin 3.2 L (3.4-5.0) gm/dl
--- NOTE | 2018-12-13 11:33 | Surgery Progress Note ---
Date of Service December 13, 2018 Assessment & Plan (1) Acute cholecystitis: POD # 1 s/p laparoscopic cholecystectomy -vitals stable, afebrile - preop pain resolved, post op pain moderate at incision sites - no n/v - Potassium low at 2.8 Plan: advance to regular diet for lunch COntinue PO Percocet and Po Ibuprofen as needed for pain ambulate incentive spirometry SCDs for DVT prophylaxis Potassium repleted via hospitalist will re-evaluate this afternoon possible discharge this afternoon Dr. Estrada has seen patient and agrees with above. Patient re-evaluated at 2:00 pm - tolerated regular diet - pain at incisions, headache had ibuprofen which controlled headache, has not had Percocet - advised patient to stay on top of pain , narcotics as needed - Given hypokalemia, will keep tonight, repeat am labs and discharge tomorrow am Subjective feeling good sore at incisions preop pain resolved no nausea , hungry ambulating hallway Physical Exam Constitutional: WD/WN, vitals as above no acute distress Gastrointestinal (Abdomen): Inspection/Auscultation: abdomen normal to inspection; abdomen not distended Percussion/Palpation: + abdomen tender (at incision sites) and abdomen soft; no guarding and abdomen not rigid Skin: no rashes, warm and dry + incision (dressing with spotting present) Psychiatric: A+Ox3, euthymic affect Results & Data Vital Signs (Past 12 Hours) Vital Signs Temp Pulse Pulse Resp BP BP Pulse Ox 12/13/18 11:11 36.9 C 56 L 18 120/70 95 12/13/18 07:16 37 C 59 L 17 120/60 91 12/13/18 03:51 36.9 C 57 L 16 110/61 93 Laboratory Results 12/13/18 12/13/18 Range/Units 06:27 06:27 WBC 7.11 (4.8-10.8) K/uL RBC 4.29 (4.2-5.4) M/uL Hgb 12.4 (12.0-16.0) g/dL Hct 38.6 (37-47) % MCV 90.0 (80-100) fL MCH 28.9 (25-34) pg MCHC 32.1 (32-36) g/dL RDW Std Deviation 46.7 H (36.4-46.3) fL RDW Coeff of Jose Antonio 14.3 (11.5-14.5) % Plt Count 238 (130-400) K/uL MPV 11.6 H (7.4-10.4) fL Sodium 140 (136-145) mmol/L Potassium 2.8 L (3.5-5.1) mmol/L Chloride 103 (98-107) mmol/L Carbon Dioxide 31 (21-32) mmol/L Anion Gap 6.0 (3-11) BUN 8 (7-18) mg/dl Creatinine 0.98 (0.6-1.2) mg/dl Est Cr Clr Drug Dosing 56.4 ml/min Est GFR ( Amer) 65.4 Est GFR (Non-Af Amer) 56.4 BUN/Creatinine Ratio 8.1 L (10-20) Glucose 85 (70-99) mg/dl Calcium 8.2 L (8.5-10.1) mg/dl Total Bilirubin 0.9 (0.2-1) mg/dl AST 30 (15-37) U/L ALT 32 (12-78) U/L Alkaline Phosphatase 65 (45-117) U/L Total Protein 5.8 L D (6.4-8.2) gm/dl Albumin 3.2 L (3.4-5.0) gm/dl Globulin 2.6 (2.5-4.0) gm/dl Albumin/Globulin Ratio 1.2 (0.9-2)
[2018-12-13] MEDS ORDERED: MoRPHine SULFATE 4 MG/ML 1 ML CARP\\VIAL IV PRN (14:20)
[2018-12-13] MEDS ORDERED: MoRPHine SULFATE 2 MG/ML CARP IV PRN (14:21)
[2018-12-13] MEDS: DOCUSATE SODIUM 100 MG CAP PO SCH ×2 (14:34→21:03)
[2018-12-13] MEDS ORDERED: POTASSIUM CHLORIDE 20 MEQ TABCR PO ONE (16:00)
[2018-12-13] MEDS: hydroCHLOROthiazide 25 MG TAB PO SCH (21:03)
[2018-12-13] MEDS ORDERED: Nursing to Pharmacy Communication ONE (21:48)
[2018-12-14] MEDS: AMPICILLIN/SULBACTAM SOD 3,000 MG in 0.9 % SODIUM CHLORIDE 100 ML IV SCH (03:30)
[2018-12-14] MEDS: LACTATED RINGER'S 1,000 ML IV SCH (04:05)
[2018-12-14] MEDS: LEVOTHYROXINE SODIUM 88 MCG TABLET PO SCH (05:50)
[2018-12-14 07:01] LABS: Hemoglobin 11.9 g/dL (12.0-16.0); Mean Corpuscular Hemoglobin 29.2 pg (25-34); Mean Corpuscular Hgb Conc 32.2 g/dL (32-36); Mean Corpuscular Volume 90.9 fL (80-100); Mean Platelet Volume 11.5 fL (7.4-10.4); Platelet Count 205 K/uL (130-400); RDW Coefficient of Variation 14.1 % (11.5-14.5); RDW Standard Deviation 46.9 fL (36.4-46.3); Red Blood Count 4.07 M/uL (4.2-5.4); White Blood Count 6.07 K/uL (4.8-10.8)
[2018-12-14 07:32] VITALS: TEMP 97.7
[2018-12-14 07:35] LABS: BUN Creatinine Ratio 12.8 (10-20); Calcium 8.2 mg/dl (8.5-10.1); Creatinine Clr Calc Pharmacy 60.1 ml/min; Est GFR (African American) 70.6; Est GFR (Non-African American) 60.9; Potassium 3.6 mmol/L (3.5-5.1)
[2018-12-14 08:08] VITALS: O2SAT 95
[2018-12-14] MEDS: FLUTICASONE PROPIONATE NA SPR 16 GM BTL NAE SCH (08:11)
[2018-12-14] MEDS ORDERED: POTASSIUM CHLORIDE 20 MEQ TABCR PO ONE (08:15)
--- NOTE | 2018-12-14 08:51 | Hospitalist Progress Note ---
Date of Service December 14, 2018 Assessment & Plan (1) Acute cholecystitis: Post op day# 2 S/P lap singh by Dr Estrada Doing well post op with pain controlled. Eating normal diet without difficulty. -DVT prophylaxis - SCDs, ambulation per surgery -continue incentive spirometry -H&H stable -Planned for discharge home today per surgery (2) Hypokalemia: Initial hypokalemia probable secondary to poor oral intake and vomiting Today K: 3.6 -potassium has been replaced -continue home dose of 10meq K po BID -will recommend repeat BMP in 1 week, pt given order for BMP in one week (3) HTN (hypertension): Initially elevated upon admission however has improved and normal BP's since pain control and surgery -HCTZ has been resumed -Continue to monitor BP (4) Leg edema: No significant edema while in hospital -HCTZ has been resumed (5) Asthma: No wheezing, SOB Reports uses Flovent only during seasonal flares -Continue albuterol prn (6) Hypothyroidism: -Continue levothyroxine (7) Depression: Stable -Continue sertraline DVT Prophylaxis -SCDs Supervising Physician Co-Signing Physician Notes Pt was seen and examined. Agreed with Lety CHAUHAN exam, assessment and plan. S/P day #[address] Estrada. Tolerated diet. Potassium stable today. Hemoglobin stable. Pain well control. Will check BMP in 1 week to monitor electrolytes. Stable from medical standpoint. MD Lyndsay Subjective Pt seen and examined. Sitting up in bedside chair eating breakfast. POD #2 s/p laparoscopic cholecystectomy by Dr Estrada. States abdominal pain controlled. Eating and drinking well. Reports feels like passing flatus. Denies fever/chills, diaphoresis, WARNER, dizziness, syncope, vision changes, neck pain, CP, SOB, orthopnea, palpitations, cough, choking, paresthesias, weakness, extremity edema, rashes, urinary symptoms. Review of Systems Review of Systems: All systems reviewed & are unremarkable except as noted in HPI & below Physical Exam Physical Exam: General: no distress, WDWN Head: normocephalic, atraumatic Eyes: conjunctiva non-injected, anicteric ENT: normal inspection external ears, nose, mucous membranes moist Neck: supple, trachea midline Lungs: clear, no respiratory distress, no wheezing/rhonchi/rales CV: RRR, no murmur, no pretibial edema Abd: normal BS, soft, +incision sites with dressings in place, mild tenderness to light palpation over incision sites Ext: no cyanosis, no calf tenderness Neuro: A&O x 3, no focal deficits noted, normal affect Skin: warm, dry Results & Data Vital Signs (Past 12 Hours) Vital Signs Temp Pulse Pulse Resp BP BP Pulse Ox 12/14/18 08:07 95 12/14/18 07:31 36.5 C 65 16 120/76 93 12/13/18 23:30 36.8 C 64 18 98/60 L 90 12/13/18 20:55 66 138/59 L
--- NOTE | 2018-12-14 08:56 | Surgery Progress Note ---
Date of Service December 14, 2018 Assessment & Plan (1) Acute cholecystitis: POD # 2 s/p laparoscopic cholecystectomy -vitals stable, afebrile - preop pain resolved, post op pain mild at incision sites - no n/v - Potassium 3.6 today Plan: Discharge home today discharge instructions reviewed follow-up surgery office in 2 weeks follow up with pcp in 1-2 weeks, recheck potassium in 1 week, continue Potassium 10 meq BID until seen by PCP. Dr. Estrada has seen patient and agrees with above. Subjective feeling good this morning soreness at incision sites, has not had any narcotics has Aleve last evening which controlled soreness no n/v, tolerating diet urinating without difficulty some shortness of breath but resolved with her Pro air no chest pain Physical Exam Constitutional: WD/WN, vitals as above Psychiatric: A+Ox3, euthymic affect Results & Data Vital Signs (Past 12 Hours) Vital Signs Temp Pulse Pulse Resp BP BP Pulse Ox 12/14/18 08:07 95 12/14/18 07:31 36.5 C 65 16 120/76 93 12/13/18 23:30 36.8 C 64 18 98/60 L 90 12/13/18 20:55 66 138/59 L Laboratory Results 12/14/18 12/14/18 Range/Units 06:22 06:22 WBC 6.07 (4.8-10.8) K/uL RBC 4.07 L (4.2-5.4) M/uL Hgb 11.9 L (12.0-16.0) g/dL Hct 37.0 (37-47) % MCV 90.9 (80-100) fL MCH 29.2 (25-34) pg MCHC 32.2 (32-36) g/dL RDW Std Deviation 46.9 H (36.4-46.3) fL RDW Coeff of Jose Antonio 14.1 (11.5-14.5) % Plt Count 205 (130-400) K/uL MPV 11.5 H (7.4-10.4) fL Sodium 141 (136-145) mmol/L Potassium 3.6 D (3.5-5.1) mmol/L Chloride 105 (98-107) mmol/L Carbon Dioxide 31 (21-32) mmol/L Anion Gap 5.0 (3-11) BUN 12 (7-18) mg/dl Creatinine 0.92 (0.6-1.2) mg/dl Est Cr Clr Drug Dosing 60.1 ml/min Est GFR ( Amer) 70.6 Est GFR (Non-Af Amer) 60.9 BUN/Creatinine Ratio 12.8 (10-20) Glucose 88 (70-99) mg/dl Calcium 8.2 L (8.5-10.1) mg/dl
[2018-12-14] MEDS: POTASSIUM CHLORIDE 10 MEQ TABCR PO SCH (09:26)
[2018-12-14] MEDS: SERTRALINE HCL 100 MG TABLET PO SCH (09:27)
[2018-12-14] MEDS: DOCUSATE SODIUM 100 MG CAP PO SCH (09:27)
[2018-12-14 09:52] VITALS: BP 138/59; PULSE 64
--- NOTE | 2018-12-18 08:48 | Discharge Summary ---
Date of Service December 18, 2018 Admission HPI Per Admitting Provider Wendi is a pleasant 73 year-old female who presented to emergency department at 0300 with complaint of upper midline abdominal pain, nausea, and vomiting after eating fried chicken last evening for dinner. States around 7 pm she noticed gas and bloating and then started having burning sensation in upper mid abdomen with nausea and dry heaves. Had one episode of vomiting but a lot of dry heaves. States she usually does not eat fried foods and has never had an episode similar to this. No prior history of gallbladder problems and was unaware of having gallstones. States her mother had gallbladder problems as w ell. Denies of any fever, chills, chest pain, shortness of breath, chest pain at rest or upon walking stairs or long distances, change in bowel habits, diarrhea, constipation, blood in stools, black/tarry stools. States she has history of chronic constipation in which she takes laxative at home to help keep her regular. Last bowel movement was yesterday and normal. Prior history of hysterectomy for uterine tumor about three years ago, laparoscopically. No other abdominal surgeries. No blood thinning agents. History of asthma and allergies in which she takes flonase. ER work-up included labs which showed no leukocytosis and lfts, t. bili, lipase wnl. CT scan of abdomen and pelvis showing distended gallbladder wtih stones and pericholecystic stranding concerning for acute cholecystitis. Wendi states her pain is better since she received IV pain medication down in the ER. Still having some burning pain in the epigastrium. Back pain and rib pain because of the dry heaving. Principal Diagnosis acute calculous cholecystitis Discharge Data Allergies Allergy/AdvReac Type Severity Reaction Status Date / Time bacitracin Allergy Mild ITCHY Verified 12/12/18 03:56 neomycin Allergy Mild ITCHY Verified 12/12/18 03:56 nickel Allergy Mild RASH Verified 12/12/18 03:56 Sulfa (Sulfonamide AdvReac Intermediate HALLUCINATIONS, Verified 12/12/18 03:56 Antibiotics) "I GET GOOFY" Consultations 12/12/18 06:24 ED Decision to Admit Stat 12/12/18 08:08 Consult Hospitalist Routine Procedures Performed Operation Date: 12/12/18 07:00 Actual Procedures p Laparoscopic Cholecystectomy without Cholangiogram(Not Applicable) - Francisca Estrada MD Ordered Studies 12/12/18 03:55 CT abd pelvis IV con only Urgent Hospital Course (1) Acute cholecystitis: Patient was admitted to hospital from emergency department and started on IV fluids, IV abx, IV pain medication as needed, IV Zofran as needed, kept npo, and SCDs for DVT prophylaxis. Patient was evaluated in the morning of HD # 1. Her blood pressure was elevated since admission to the hospital, likely secondary to pain. Medicine was consulted for further recommendations which were pain control initially to control BP. Patients Bp was improved to SBP of 150's with IV morphine. Patient was scheduled for laparoscopic cholecystectomy with Dr. Estrada. Patient was taken to operating room and found to have acute cholecystitis with significant inflammation of the gallbladder. Patient tolerated procedure well and was transferred back to medical/surgical floor for postoperative care. Diet was advanced to clear liquids. POD # 1, vitals stable, htn resolved, pain moderate at incisions but controlled. Potassium low at 2.8. Potassium repleted with oral and IV potassium by medicine service. Patient's diet was advanced to regular diet. Patient kept one more night for pain control and to recheck potassium levels in the am. POD # 2 vitals stable, afebrile, tolerated regular diet, potassium corrected at 3.6. Patient was discharged home on POD # 2 in stable condition. Prescription for recheck bmp in 1 week and advised to continue BID 10 meq of potassium at home. Total Time Total Time Spent Total Time Spent (In Minutes): 30 Total Time Includes: Examination of the Patient, Discharge Planning, Medication Reconciliation and Communication With Other Providers Discharge Plan Discharge Items Patient Disposition: Home - Self-Care Reason For Visit: ACUTE CHOLECYSTITIS Discharge Diagnosis: same Condition on Discharge: Good Activity: Per Instructions section Non-emergency contact: Surgeon Call non-emergency contact if: your pain is not controlled, your pain is worsening, your pain is concerning for you, you have a fever, your temperature is above 101, your wound has increased redness, your wound has increased drainage and your wound pain has increased Follow-up/Referrals: Tyron Valadez MD [Primary Care Provider] - Diet: Regular Addtl Attending Provider Instructions: Surgical discharge instructions: - No heavy lifting over 20 pounds for 4 weeks - no strenuous activity until cleared by surgeon - No submerging incisions underwater for 2 weeks (no bathing, swimming, or hot tubs) - No driving while taking narcotic pain medication or until you are pain free - You may shower in 2 days. sponge bath and wash hair in meantime. After 2 days remove outer dressings and shower. Leave steri strips on for 1 week and then remove. - Walking is encouraged daily to prevent blood clots from forming in your legs - You will be given prescription for narcotic pain medication for moderate to severe pain. Take as directed. This medication may cause drowsiness or constipation. - You may take extra strength Ibuprofen as needed in between doses of Percocet. (600 mg of Ibuprofen every 6 hours as needed) - You can take OTC stool softener (Colace) to prevent constipation while taking narcotic pain medication. - Follow-up in surgical office in 2 weeks, please call office at [phone] to make an appointment. - You should continue your Potassium 10 meq twice a day. You will need to have your labs drawn in one week to check your potassium level. Please call your PCP office for post hospital follow-up. They will decide about your Potassium dosing. Pending Studies at Discharge: Yes (gallbladder pathology, will be reviewed at follow-up visit) Stand-Alone Forms: Call Back Authorization, [facility], Opioid Pain Management Medications and DC Order Prescriptions: New oxycodone-acetaminophen 5-325 mg tablet 1 tab PO Q4H PRN (Reason: pain) Qty: 18 RF: 0 Continued potassium chloride 10 mEq Capsule, Extended Release 10 meq PO BID RF: 0 sertraline 100 mg tablet 150 mg PO DAILY RF: 0 levothyroxine 88 mcg tablet 88 mcg PO DAILY RF: 0 meclizine 25 mg tablet 25 mg PO TID PRN (Reason: Dizziness) RF: 0 naproxen sodium [Aleve] 220 mg Tablet 220 mg PO DIRECTED PRN (Reason: Pain) RF: 0 ibuprofen 200 mg Tablet 400 - 600 mg PO DIRECTED PRN (Reason: Pain) RF: 0 hydrochlorothiazide 25 mg tablet 25 mg PO QPM RF: 0 fluticasone propionate 50 mcg/actuation spray,suspension 2 spray intranasal BID RF: 0 albuterol sulfate 90 mcg/actuation Hfa Aerosol Inhaler 2 puff INHALATION Q6H PRN (Reason: Shortness Of Breath Or Wheezing) RF: 0 Discharge Orders: Discharge Order (Routine); Ordered 12/14/18 Ordered By: Dalia Mares/Other Patient Handouts: Surgery Gallbladder Admission Data Admit Date/Time: 12/12/18 06:45 Attending Provider: Francisca Estrada Admit Provider: Ashley Esparza Primary Care Provider: Tyron Valadez Other Providers: Ashley Esparza ; Mairi Umana ; Arnlufo Baumann ; Jessica Chavez ; Janet Bella ; Lorie Andrews ; Cordelia Mckeon ; Savanna Baca ; Jose Serrano ; Eren Zhou ; Jcarlos Banda ; Lilian Holden ; Neeta Liu ; Rama Sousa ; Alexis Benitez ; Isidoro Almazan ; Lety Berumen ; Ru Cruz ; Monae Dominguez ; Isidoro Farrell ; Marion Villarreal ; Bin Gastelum ; Ronda Lilly I. Other Interventions: Discharge Summary Assessment (RN) Last Done: 12/14/18 09:51 DC Date/Time DO NOT enter until pt leaves facility: 12/14/18 10:31
--- NOTE | 2018-12-18 11:13 | Discharge Summary ---
ADMITTING DIAGNOSIS: Acute cholecystitis. DISCHARGE DIAGNOSIS: Same. OPERATION: Laparoscopic cholecystectomy. SURGEON: Francisca Estrada MD ANESTHESIA: General. DETAILS OF DISCHARGE SUMMARY: This is a 73-year-old female who was admitted to the hospital for acute cholecystitis and we took the patient to the OR. We did a laparoscopic cholecystectomy. The patient tolerated the procedure well. After procedure, the patient transferred to the regular floor. The patient is doing fine and good comfort, no incision pain. The patient tolerated the diet. PHYSICAL EXAMINATION: VITAL SIGNS: Temperature is 36.5, heart rate is 65, respiratory rate is 16, blood pressure 138/59, O2 saturation 95% on room air. GENERAL: The patient is alert, awake, oriented x3. HEENT: With normal limitation. NEUROLOGIC: Intact. NECK: No JVD. CHEST: Bilateral lung sounds clear. HEART: Normal S1, S2. No murmur. ABDOMEN: Soft, no tenderness, nondistended. All dressings intact. Incision is intact and no redness, no drainage. EXTREMITIES: The patient has no edema. PLAN: The patient wanted to go home. We discharged the patient to home on 12/14/2018. Also, we gave the patient postop care instruction. The patient understands. pathology report- gallbladder adenocarcinoma, intestinal type, PT2aN0 MTDD
--- NOTE | 2018-12-19 10:00 | Coding Query ---
PATHOLOGY To promote full compliance with coding requirements relating to patient care, physician participation is requested in all cases of sporting goods sales associate uncertainty. Please assist us with the question(s) below: Please review the Pathology report and please document any relevant diagnosis(es) below: Diagnosis(es):S/P laparoscopic cholecystectomy, pathology diagnosis: adenocarcinoma, intestinal type, PT2aN0 Francisca Estrada MD Thank you MILA Barcenas [facility]
== END 2018-12-14 10:31 | disposition home or self-care (01) | DRG 418 ==
LOC: ED 03:29 → SUATTDRO 06:45 → 3W 06:45

== ENCOUNTER 2021-07-02 10:34 | Observation (INO) ==
[2021-07-02] MEDS ORDERED: SODIUM CHLORIDE 0.9% 1000ML 1,000 ML IV SCH (11:00)
[2021-07-02] MEDS ORDERED: ONDANSETRON INJ 2 MG/ML 2 ML VIAL IV STA (11:10)
--- NOTE | 2021-07-02 11:15 | Emergency Department Note ---
History of Present Illness General Chief complaint: Dizziness Stated complaint: DIZZINESS X 3DAYS,FEELING SICK Time Seen by Provider: 07/02/21 10:52 Source: patient History of Present Illness Maximum Pain Intensity: 3 76-year-old female with a history of vertigo presents with complaint of lightheadedness and dizziness for the past 3 days. Patient's had a few episodes of nausea and vomiting. Patient states diarrhea started yesterday. Patient has taken meclizine as this typically has helped in the past. Patient states that she feels like she has allergies and that she is lightheaded at times. Patient denies slurred speech blurred vision difficulty walking difficulty talking. Patient denies chest pain shortness of breath abdominal pain. Patient denies fever. There are no other mitigating or alleviating factors Home Medications Medication Instructions Recorded Confirmed Type albuterol sulfate 90 mcg/actuation 2 puff INHALATION Q6H PRN 12/12/18 07/02/21 History aerosol inhaler fluticasone propionate 50 1 spray INTRANASAL BID 12/12/18 07/02/21 History mcg/actuation nasal spray,suspension hydrochlorothiazide 25 mg tablet 25 mg PO QDD 12/12/18 07/02/21 History levothyroxine 88 mcg tablet 88 mcg PO DAILYBB 12/12/18 07/02/21 History meclizine 25 mg tablet 25 mg PO TID PRN 12/12/18 07/02/21 History potassium chloride 10 mEq 30 meq PO DAILYBB 12/12/18 07/02/21 History capsule,extended release sertraline 100 mg tablet 150 mg PO QAM 12/12/18 07/02/21 History coQ10 (ubiquinol) 200 mg capsule 200 mg PO QDL 07/02/21 07/02/21 History latanoprost 0.005 % eye drops 1 drp OPB HS 07/02/21 07/02/21 History rosuvastatin 5 mg tablet 5 mg PO QAM 07/02/21 07/02/21 History Allergies Allergy/AdvReac Type Severity Reaction Status Date / Time bacitracin Allergy Mild ITCHY Verified 07/02/21 12:20 neomycin Allergy Mild ITCHY Verified 07/02/21 12:20 nickel Allergy Mild RASH Verified 07/02/21 12:20 Sulfa (Sulfonamide AdvReac Intermediate HALLUCINATIONS, Verified 07/02/21 12:20 Antibiotics) "I GET GOOFY" Past Med/Surg History Medical History (Updated 07/02/21 @ 13:36 by Enmanuel Bro DO) Asthma Asthma Complex endometrial hyperplasia with atypia Constipation Depression HTN (hypertension) Hypothyroidism Hypothyroidism Leg edema Seasonal allergies Surgical History H/O dilation and curettage History of bilateral salpingo-oophorectomy History of breast biopsy History of hysterectomy for cancer S/P breast biopsy S/P cataract surgery S/P laparoscopic hysterectomy Status post bilateral salpingo-oophorectomy Social History Smoking Status: Former smoker Hx Alcohol Use: No Hx Substance Use: No Preferred Language: Namibian Communication Ability: Effective Drill Operator Automatic Required: Yes Beliefs That Will Affect Care: None Current Living Situation: Spouse Feels Safe at Home: Yes Assistive Devices: None Review of Systems A total of 10 systems reviewed and were otherwise negative Constitutional: no fever Respiratory: no cough Cardiovascular: no chest pain Gastrointestinal: no abdominal pain Neurologic: + dizziness Physical Exam Vital Signs Vital Signs - 24 hr 07/02/21 10:38 07/02/21 10:40 07/02/21 10:56 Temperature 36.4 C L Temperature Source Temporal Artery Scan Pulse Rate 56 L Pulse Rate [Apical] Pulse Rhythm Regular Pulse Strength Normal Respiratory Rate 20 Respiratory Effort / Characteristics Non-Labored Spontaneous Respiratory Depth Normal Respiratory Pattern Regular Blood Pressure 172/71 H Blood Pressure [Right Arm] Blood Pressure Mean 104 Blood Pressure Mean [Right Arm] Blood Pressure Position Sitting Blood Pressure Position [Right Arm] Pulse Oximetry 95 98 Oxygen Delivery Method Room Air Room Air Room Air Sepsis Recent Fever Within 48 Hours No Sepsis New/Unexplained Change in Mental Status N/A Sepsis Action Taken by Nursing No Action Required 07/02/21 11:00 07/02/21 13:00 Temperature Temperature Source Pulse Rate Pulse Rate [Apical] 48 L 60 Pulse Rhythm Pulse Strength Respiratory Rate 13 15 Respiratory Effort / Characteristics Non-Labored Spontaneous Non-Labored Spontaneous Respiratory Depth Normal Normal Respiratory Pattern Blood Pressure Blood Pressure [Right Arm] 159/84 H 180/80 H Blood Pressure Mean Blood Pressure Mean [Right Arm] 109 113 Blood Pressure Position Blood Pressure Position [Right Arm] Lying Pulse Oximetry 92 92 Oxygen Delivery Method Room Air Room Air Sepsis Recent Fever Within 48 Hours Sepsis New/Unexplained Change in Mental Status Sepsis Action Taken by Nursing VITAL SIGNS - Vital signs and nursing notes were reviewed. GENERAL -76-year-old male appearing her stated age who is in no acute distress. Communicates well with provider and answers questions appropriately. SKIN - Without rashes. HEAD - NC/AT. EYES - PERRL with EOMI bilaterally. Sclera anicteric. Palpebral conjunctiva pink and moist with no injection noted. EARS - No deformities of external structures noted on gross examination bilaterally. No pain elicited with palpation of the tragus bilaterally. External auditory canals without discharge or otorrhea. Tympanic membranes pearly tobin without retraction or bulging. No fluid or purulent material visualized behind the TM. Handle of malleus, umbo, cone of light, pars tensa/flaccid all easily visualized. NOSE - Midline and without cyanosis. No epistaxis or purulent drainage noted. Septum midline without deviation or septal hematoma noted. MOUTH/OROPHARYNX - Without perioral cyanosis. Buccal mucosa pink and moist and without leukoplakia. Tongue midline with equal elevation of palate bilaterally. No tonsillar hypertrophy, erythema, or exudates noted. [] dentition noted. NECK - Neck with FROM. Supple to palpation. No lymphadenopathy noted. No nuchal rigidity. LUNGS - Chest wall symmetric without accessory muscle use, intercostals retractions, or central cyanosis. Normal vesicular breath sounds CTA B/L. No wheezes, rales, or rhonchi appreciated. CARDIAC - RRR with S1/S2. No murmur, rubs, or gallops appreciated. ABDOMEN - Abdominal contours soft without pulsations or visible masses. BS normoactive all four quadrants. No tenderness, palpable masses, hepatosplenomegaly, or ascites noted. EXTREMITIES - No clubbing or peripheral cyanosis. No pretibial edema present. +3/5 radial, posterior tibial, and dorsalis pedis pulses palpated throughout. +5/5 strength noted in UE/LE bilaterally. NEUROLOGIC - Cranial nerves II through XII grossly intact. Sensory intact to light touch throughout. NIH score is 0, GCS of 15 PSYCH - A&Ox3 and cooperates fully with examiner. Pt is very pleasant and interacts well with examiner. Course Reevaluation(s) Reevaluation #1: Patient continues to complain of dizziness, patient was ambulated but became extremely dizzy after only 6 steps at 1335 Reevaluation #2: Spoke with [facility] hospitalists for admit at 1344 - Admit Dr Benitez Administered Medications Discontinued Medications Sodium Chloride (Nss 1000ml) 1,000 mls @ 999 mls/hr IV .Q1H1M RICKY Stop: 07/02/21 12:00 Last Infusion: 07/02/21 12:53 Dose: 0 mls/hr Documented by: [id number] Admin: 07/02/21 11:52 Dose: 999 mls/hr Documented by: [id number] Meclizine HCl (Meclizine Hcl 25 Mg Tab) 25 mg PO NOW STA Stop: 07/02/21 13:32 Last Admin: 07/02/21 13:35 Dose: 25 mg Documented by: [id number] Ondansetron HCl (Ondansetron Inj 2 Mg/Ml 2 Ml Vial) 4 mg IV NOW STA Stop: 07/02/21 11:11 Last Admin: 07/02/21 11:22 Dose: 4 mg Documented by: [id number] Medical Decision Making Medical Records Attestation: I reviewed the patient's medical records. Home Medications Current Medication List: was personally reviewed by me Laboratory Data Attestation: I reviewed the patient's lab results. Result diagrams: 07/02/21 11:10 07/02/21 11:10 Lab Results 07/02/21 07/02/21 Range/Units 11:10 11:10 WBC 5.10 (4.8-10.8) K/uL RBC 4.84 (4.2-5.4) M/uL Hgb 14.7 (12.0-16.0) g/dL Hct 43.6 (37-47) % MCV 90.1 (80-100) fL MCH 30.4 (25-34) pg MCHC 33.7 (32-36) g/dL RDW Std Deviation 45.7 (36.4-46.3) fL RDW Coeff of Jose Antonio 13.8 (11.5-14.5) % Plt Count 299 (130-400) K/uL MPV 11.4 H (7.4-10.4) fL Immature Gran % (Auto) 0.2 % Neut % (Auto) 74.8 % Lymph % (Auto) 15.5 % [place] % (Auto) 6.5 % Eos % (Auto) 2.0 % Baso % (Auto) 1.0 % Neut # (Auto) 3.82 (1.4-6.5) K/uL Lymph # (Auto) 0.79 L (1.2-3.4) K/uL [place] # (Auto) 0.33 (0.11-0.59) K/uL Eos # (Auto) 0.10 (0-0.5) K/uL Baso # (Auto) 0.05 (0-0.2) K/uL Immature Gran # (Auto) 0.01 (0.00-0.02) K/uL Sodium 140 (136-145) mmol/L Potassium 3.4 L (3.5-5.1) mmol/L Chloride 102 (98-107) mmol/L Carbon Dioxide 33 H (21-32) mmol/L Anion Gap 5 (3-11) BUN 8 (6-23) mg/dl Creatinine 0.92 (0.6-1.2) mg/dl Est Cr Clr Drug Dosing Not Reportable Est GFR ( Amer) 69.1 ml/min Est GFR (Non-Af Amer) 59.6 ml/min BUN/Creatinine Ratio 8.7 L (10-20) Glucose 95 (70-99(Fasting)) mg/dl Calcium 10.1 (8.5-10.1) mg/dl Total Bilirubin 1.1 H (0.2-1.0) mg/dl AST 15 (13-39) U/L ALT 11 (7-52) U/L Alkaline Phosphatase 61 (34-104) U/L Total Protein 6.4 (6.0-8.3) gm/dl Albumin 4.1 (3.4-5.0) gm/dl Globulin 2.3 L (2.5-4.0) gm/dl Albumin/Globulin Ratio 1.8 (0.9-2) Imaging Data Radiologist's Impression: Head CT 07/02/21 10:[address] DOSE: 537.48 mGy.cm HISTORY: dizzy TECHNIQUE: Multiaxial CT images of the head were performed without the use of intravenous contrast. Automated exposure control was utilized for this study. A dose lowering technique was utilized adhering to the principles of ALARA. Comparison: Head CT 08/02/2018. Findings: The paranasal sinuses and mastoid air cells are clear. The calvarium and skull base are intact. There is no mass, hematoma, midline shift, acute infarct. White matter hypodensity is nonspecific but suggestive of microvascular ischemic change. The ventricles and sulci demonstrate mild age-related involutional changes. Impression: No acute intracranial abnormality. ACT 112: Negative or not required by law. Electronically signed by: Reed Campuzano M.D. 07/02/2021 11:48 AM ECG Data Attestation: I personally reviewed and interpreted this ECG as follows: Additional Comments: EKG interpreted by me sinus bradycardia rate of 54 low-voltage poor R wave progression the precordium no obvious ST segment elevation or depression normal axis normal intervals MDM Narrative Medical decision making differential diagnosis vertigo, labyrinthitis, dehydrat ion, electrolyte abnormality, cardiac dysrhythmia. Plan is to check labs EKG CT, hydrate, antiemetic, reassess Impression & Plan Dizziness Discharge Plan Visit Data Chief Complaint: Dizziness Stated Complaint: DIZZINESS X 3DAYS,FEELING SICK ED Provider: Enmanuel Bro Discharge Problem: Dizziness Patient Disposition: Being Evaluated by Hospitalist Forms Stand Alone Forms: My [facility] Prescriptions Prescriptions: No Action potassium chloride 10 mEq Capsule, Extended Release 30 meq PO DAILYBB RF: 0 sertraline 100 mg tablet 150 mg PO QAM RF: 0 levothyroxine 88 mcg tablet 88 mcg PO DAILYBB RF: 0 meclizine 25 mg tablet 25 mg PO TID PRN (Reason: Dizziness) RF: 0 hydrochlorothiazide 25 mg tablet 25 mg PO QDD RF: 0 fluticasone propionate 50 mcg/actuation spray,suspension 1 spray intranasal BID RF: 0 albuterol sulfate 90 mcg/actuation Hfa Aerosol Inhaler 2 puff INHALATION Q6H PRN (Reason: Shortness Of Breath Or Wheezing) RF: 0 latanoprost 0.005 % drops 1 drp OPB HS RF: 0 rosuvastatin 5 mg tablet 5 mg PO QAM RF: 0 coQ10 (ubiquinol) 200 mg Capsule 200 mg PO QDL RF: 0 Referrals Referrals: Tyron Valadez MD [Primary Care Provider] -
[2021-07-02 11:25] LABS: Basophils # (auto) 0.05 K/uL (0-0.2); Hematocrit (blood only) 43.6 % (37-47); Hemoglobin 14.7 g/dL (12.0-16.0); Immature Granulocytes # (auto) 0.01 K/uL (0.00-0.02); Immature Granulocytes % (auto) 0.2 %; Lymphocytes # (auto) 0.79 K/uL (1.2-3.4); Lymphocytes % (auto) 15.5 %; Mean Corpuscular Hemoglobin 30.4 pg (25-34); Mean Corpuscular Hgb Conc 33.7 g/dL (32-36); Mean Corpuscular Volume 90.1 fL (80-100); Mean Platelet Volume 11.4 fL (7.4-10.4); Monocytes # (auto) 0.33 K/uL (0.11-0.59); Monocytes % (auto) 6.5 %; Neutrophils # (auto) 3.82 K/uL (1.4-6.5); Neutrophils % (auto) 74.8 %; Platelet Count 299 K/uL (130-400); RDW Coefficient of Variation 13.8 % (11.5-14.5); RDW Standard Deviation 45.7 fL (36.4-46.3); Red Blood Count 4.84 M/uL (4.2-5.4)
[2021-07-02 11:48] LABS: Alanine Aminotransferase 11 U/L (7-52); Albumin Globulin Ratio 1.8 (0.9-2); Albumin Level 4.1 gm/dl (3.4-5.0); Alkaline Phosphatase 61 U/L (34-104); Anion Gap 5 (3-11); Aspartate Aminotransferase 15 U/L (13-39); BUN Creatinine Ratio 8.7 (10-20); Bilirubin,Total 1.1 mg/dl (0.2-1.0); Blood Urea Nitrogen 8 mg/dl (6-23); Calcium 10.1 mg/dl (8.5-10.1); Carbon Dioxide 33 mmol/L (21-32); Chloride 102 mmol/L (98-107); Est GFR (African American) 69.1 ml/min; Est GFR (Non-African American) 59.6 ml/min; Globulin 2.3 gm/dl (2.5-4.0); Glucose 95 mg/dl (70-99(Fasting)); Potassium 3.4 mmol/L (3.5-5.1); Sodium 140 mmol/L (136-145); Total Protein 6.4 gm/dl (6.0-8.3)
--- NOTE | 2021-07-02 11:49 | CT Scan Report ---
HEAD CT NONCONTRAST CT DOSE: 537.48 mGy.cm HISTORY: dizzy TECHNIQUE: Multiaxial CT images of the head were performed without the use of intravenous contrast. A utomated exposure control was utilized for this study. A dose lowering technique was utilized adheri ng to the principles of ALARA. Comparison: Head CT 08/02/2018. Findings: The paranasal sinuses and mastoid air cells are clear. The calvarium and skull base are int act. There is no mass, hematoma, midline shift, acute infarct. White matter hypodensity is nonspecifi c but suggestive of microvascular ischemic change. The ventricles and sulci demonstrate mild age-rela mily involutional changes. Impression: No acute intracranial abnormality. ACT 112: Negative or not required by law. Electronically signed by: Reed Campuzano M.D. 07/02/2021 11:48 AM
[2021-07-02] MEDS ORDERED: MECLIZINE HCL 25 MG TAB PO STA (13:31)
--- NOTE | 2021-07-02 14:33 | History & Physical Report ---
Date of Service July 02, 2021 Assessment & Plan (1) Dizziness: Plan: Dizziness: H/O Vertigo CT head: No acute intracranial findings Monitor in Telemetry for arrhythmia Check Orthostatics Check ECHO, Carotid Ultrasound Fall precautions PT/OT Meclizine PRN Hypokalemia Replace and monitor electrolytes Nausea, Vomiting, Diarrhea Check stool studies Received IV fluids in ED Hypothyroidism Continue Levothyroxine Hypertension Losartan, HCTZ Mood disorder on Sertraline CKD III Cr at baseline Monitor renal function Chronic rhinitis Continue Flonase Takes antihistamines daily--Doesn't remember name DVT Px: Lovenox SQ Code Status Full Code History of Present Illness Chief Complaint: Dizziness Primary Care Provider: Tyron Valadez MD Patient is a 76-year-old female with history of hypothyroidism, vertigo, hypertension, history of tobacco use, mood disorder, CKD stage III, chronic rhinitis and other medical problems presents with history of dizziness which has been gradually worsening since past 2 days. Patient had history of vertigo but states that current dizziness is different from her usual symptoms. She currently feels lightheaded but denies any history of syncope. Initial symptoms started 2 weeks ago which resolved and had recurrence since 2 days. She has been having balance issues with ambulation secondary to dizziness. Reports associated headache intermittently. Also had nausea, vomiting and diarrhea since 2 days duration. Denies any hearing loss, tinnitus, recent upper respiratory infection. Also denies any fall, head trauma, visual changes, focal weakness, bowel or bladder incontinence, chest pain, shortness of breath, fever, chills, palpitations. No aggravating or relieving factors noted. Allergies Allergy/AdvReac Type Severity Reaction Status Date / Time bacitracin Allergy Mild ITCHY Verified 07/02/21 12:20 neomycin Allergy Mild ITCHY Verified 07/02/21 12:20 nickel Allergy Mild RASH Verified 07/02/21 12:20 Sulfa (Sulfonamide AdvReac Intermediate HALLUCINATIONS, Verified 07/02/21 12:20 Antibiotics) "I GET GOOFY" Home Medications Medication Instructions Recorded Confirmed Type albuterol sulfate 90 mcg/actuation 2 puff INHALATION Q6H PRN 12/12/18 07/02/21 History aerosol inhaler fluticasone propionate 50 2 spray INTRANASAL BID 12/12/18 07/02/21 History mcg/actuation nasal spray,suspension hydrochlorothiazide 25 mg tablet 25 mg PO QDD 12/12/18 07/02/21 History levothyroxine 88 mcg tablet 88 mcg PO DAILYBB 12/12/18 07/02/21 History meclizine 25 mg tablet 25 mg PO TID PRN 12/12/18 07/02/21 History potassium chloride 10 mEq 30 meq PO DAILYBB 12/12/18 07/02/21 History capsule,extended release sertraline 100 mg tablet 150 mg PO QAM 12/12/18 07/02/21 History coQ10 (ubiquinol) 200 mg capsule 200 mg PO QDL 07/02/21 07/02/21 History latanoprost 0.005 % eye drops 1 drp OPB HS 07/02/21 07/02/21 History rosuvastatin 5 mg tablet 5 mg PO QAM 07/02/21 07/02/21 History Past Med/Surg History Medical History Asthma Asthma Complex endometrial hyperplasia with atypia Constipation Depression HTN (hypertension) Hypothyroidism Hypothyroidism Leg edema Seasonal allergies Surgical History H/O dilation and curettage History of bilateral salpingo-oophorectomy History of breast biopsy History of hysterectomy for cancer S/P breast biopsy S/P cataract surgery S/P laparoscopic hysterectomy Status post bilateral salpingo-oophorectomy Social History Smoking Status: Never smoker Hx Alcohol Use: No Hx Substance Use: No Preferred Language: Belgian Communication Ability: Effective Insole Bottom Filler Required: No Beliefs That Will Affect Care: None Current Living Situation: Spouse Feels Safe at Home: Yes Safety Concerns: Feels Safe At This Time Assistive Devices: Denture - Upper and Denture - Lower Review of Systems Review of Systems: All systems reviewed & are unremarkable except as noted in Subjective Physical Exam Physical Exam: Physical Exam: Vitals signs as noted above General Appearance:Obese, no apparent distress Head: normocephalic, Atraumatic Eyes: normal inspection, EOMI Neck: supple, Trachea midline Respiratory/Chest: Normal breath sounds, CTA, No accessory muscle use Cardiovascular: S1, S2, No murmur Abdomen/GI:Soft, Non tender, Bowel sounds present Extremities/Musculoskeletal:normal inspection, no edema Neurologic/Psych:AAOX3, grossly no focal neurological deficits Skin: normal color, warm Results & Data Results & Data ([facility]) Vital Signs (Past 12 Hours) Vital Signs Temp Pulse Pulse Resp BP BP Pulse Ox 07/02/21 13:00 60 15 180/80 H 92 07/02/21 11:00 48 L 13 159/84 H 92 07/02/21 10:56 98 07/02/21 10:38 36.4 C L 56 L 20 172/71 H 95 Laboratory Results Short CBC 07/02/21 Range/Units 11:10 WBC 5.10 (4.8-10.8) K/uL Hgb 14.7 (12.0-16.0) g/dL Hct 43.6 (37-47) % Plt Count 299 (130-400) K/uL BMP 07/02/21 11:10 Sodium 140 Potassium 3.4 L Chloride 102 Carbon Dioxide 33 H BUN 8 Creatinine 0.92 Glucose 95 Calcium 10.1 Liver Function 07/02/21 Range/Units 11:10 Total Bilirubin 1.1 H (0.2-1.0) mg/dl AST 15 (13-39) U/L ALT 11 (7-52) U/L Alkaline Phosphatase 61 (34-104) U/L Albumin 4.1 (3.4-5.0) gm/dl Diagnostic Findings CT Head: No acute intracranial abnormality. Carotid Doppler: No hemodynamically significant stenosis or significant atherosclerotic plaquing. Normal antegrade vertebral flow bilaterally. Code Status & VTE Plan VTE Prophylaxis Plan VTE Prophylaxis will be ordered: Yes
[2021-07-02] MEDS ORDERED: POTASSIUM CHLORIDE 10 MEQ TABCR PO ONE (14:39)
--- NOTE | 2021-07-02 17:39 | Ultrasound Report ---
US carotid doppler BI CLINICAL HISTORY: 76 years-old Female with Dizziness. Acute dizziness COMPARISON: Head CT 07/02/2021 TECHNIQUE: Multiple real time sonographic images of the carotid bifurcations were obtained assessing tobin scale, color Doppler and spectral wave form appearance FINDINGS: RIGHT CAROTID: The peak systolic velocity measured within the right ICA is112 cm/sec. The end diast olic velocity measured 27 cm/sec. The ICA to CCA ratio measured 2.3 which correlates with a stenosis of 0-50%. There is only minimal atherosclerotic plaque of the right carotid bulb. LEFT CAROTID: The peak systolic velocity measured within the left ICA is101 cm/sec. The end diastol ic velocity measured 24 cm/sec. The ICA to CCA ratio measured 1.9 which correlates with a stenosis of 0-50%. There is only minimal atherosclerotic plaque of the left carotid bulb. There is normal antegrade vertebral flow bilaterally. IMPRESSION: 1. No hemodynamically significant stenosis or significant atherosclerotic plaquing. 2. Normal antegrade vertebral flow bilaterally. ACT 112: Negative or not required by law. The above report was generated using voice recognition software. It may contain grammatical, syntax o r spelling errors. Electronically signed by: Dru Orozco M.D. 07/02/2021 5:36 PM
[2021-07-02] MEDS ORDERED: POLYETHYLENE (MIRALAX) 17 GM PACK PO PRN (18:30)
[2021-07-02] MEDS ORDERED: ACETAMINOPHEN 325 MG TAB PO PRN (18:30)
[2021-07-02] MEDS ORDERED: LOSARTAN POTASSIUM 50 MG TAB PO SCH (18:30)
[2021-07-02] MEDS: MECLIZINE HCL 25 MG TAB PO PRN (20:06)
[2021-07-02] MEDS: FLUTICASONE PROPIONATE NA SPR 16 GM BTL SCH (20:09)
[2021-07-03] MEDS: LEVOTHYROXINE SODIUM 88 MCG TABLET PO SCH (06:22)
[2021-07-03] MEDS: POTASSIUM CHLORIDE 10 MEQ TABCR PO SCH (06:22)
[2021-07-03] MEDS: MECLIZINE HCL 25 MG TAB PO PRN ×3 (06:23→22:31)
[2021-07-03 06:25] LABS: Hematocrit (blood only) 39.1 % (37-47); Hemoglobin 12.8 g/dL (12.0-16.0); Mean Corpuscular Hemoglobin 30.3 pg (25-34); Mean Corpuscular Hgb Conc 32.7 g/dL (32-36); Mean Corpuscular Volume 92.4 fL (80-100); Mean Platelet Volume 11.3 fL (7.4-10.4); Platelet Count 283 K/uL (130-400); RDW Standard Deviation 47.3 fL (36.4-46.3); Red Blood Count 4.23 M/uL (4.2-5.4); White Blood Count 5.95 K/uL (4.8-10.8)
--- NOTE | 2021-07-03 06:44 | Electrocardiogram Report ---
Test Reason : Blood Pressure : / mmHG Vent. Rate : 054 BPM Atrial Rate : 054 BPM P-R Int : 152 ms QRS Dur : 086 ms QT Int : 468 ms P-R-T Axes : 053 -14 059 degrees QTc Int : 443 ms Poor data quality, interpretation may be adversely affected Sinus bradycardia Low voltage QRS Borderline ECG When compared with ECG of 12-DEC-2018 10:03, Nonspecific T wave abnormality, improved in Lateral leads Confirmed by Francisco J Berry ([id number]) on 07/03/2021 6:44:03 AM Referred By: Confirmed By:Francisco J Berry
[2021-07-03 06:52] LABS: BUN Creatinine Ratio 11.7 (10-20); Creatinine Clr Calc Pharmacy 51.3 ml/min; Est GFR (African American) 60.3 ml/min; Magnesium 1.7 mg/dl (1.7-2.4); Potassium 3.8 mmol/L (3.5-5.1)
[2021-07-03] MEDS ORDERED: SODIUM CHLORIDE 0.9% 1000ML 1,000 ML IV SCH (08:15)
[2021-07-03] MEDS: FLUTICASONE PROPIONATE NA SPR 16 GM BTL SCH ×2 (08:57→22:06)
[2021-07-03] MEDS: SERTRALINE HCL 50 MG TABLET PO SCH (08:58)
[2021-07-03] MEDS: ENOXAPARIN INJ 40 MG/0.4 ML SYR SQ SCH (08:58)
[2021-07-03] MEDS: ROSUVASTATIN CALCIUM 5 MG TAB PO SCH (08:59)
--- NOTE | 2021-07-03 11:55 | Electrocardiogram Report ---
Test Reason : Blood Pressure : / mmHG Vent. Rate : 059 BPM Atrial Rate : 059 BPM P-R Int : 158 ms QRS Dur : 084 ms QT Int : 450 ms P-R-T Axes : 087 073 086 degrees QTc Int : 445 ms Sinus bradycardia with sinus arrhythmia Nonspecific ST abnormality Otherwise normal ECG Confirmed by Perfecto Vargas ([id number]) on 07/03/2021 11:54:43 AM Referred By: REFERRED SELF Confirmed By:Prem Vargas
--- NOTE | 2021-07-03 14:22 | Magnetic Resonance Report ---
MR brain wo con CLINICAL HISTORY: Dizziness for 3 days. Evaluate for possible stroke.. COMPARISON STUDY: CT brain from 07/02/2021 and previous MR from 02/20/2015 TECHNIQUE: Multiplanar multisequence images of the Brain were performed without IV contrast. Diffusi on weighted imaging and ADC mapping was also performed. FINDINGS: Extra-axial space: There is no evidence for a subdural hematoma, There are no extra-axial fluid chloe ections. Ventricles and cisterns: The ventricles are normal in size and configuration. There is no evidence f or midline shift or mass effect. Parenchyma: There is no evidence for an acute hemorrhage or infarct. No acute diffusion abnormalities are noted on diffusion weighted imaging or ADC mapping. There is normal tobin-white differentiation. There is mild cerebral cortical atrophy present. There is bright signal seen on FLAIR weighted seque nces within the centrum semiovale and periventricular white matter characteristic of remote small ves luz marina disease. The sulci and gyri appear normal without effacement. The midline structures are unremark able. The posterior fossa structures appear normal. There is no evidence for mass lesion. Osseous structures: The paranasal sinuses are well aerated. The mastoid air cells are well aerated. Soft tissues: No focal soft tissue abnormalities are identified. IMPRESSION: 1. No acute intracranial abnormalities. 2. 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 ACT 112: Negative or not required by law. Electronically signed by: Manuelito Moise M.D. 07/03/2021 2:19 PM
[2021-07-03] MEDS: PROMETHAZINE HCL 6.25 MG in SODIUM CHLORIDE 0.9% 50 ML IV PRN (14:56)
[2021-07-03] MEDS ORDERED: hydroCHLOROthiazide 25 MG TAB PO SCH (16:30)
[2021-07-03] MEDS ORDERED: LORazepam 0.5 MG TAB PO PRN (16:33)
--- NOTE | 2021-07-03 16:33 | Hospitalist Progress Note ---
Date of Service July 03, 2021 Assessment & Plan (1) Dizziness: Plan: per admitting [facility] [place] notes with addendum Dizziness secondary to Vertigo H/O Vertigo CT head: No acute intracranial findings Monitor in Telemetry for arrhythmia Check Orthostatics Check ECHO, Carotid Ultrasound Fall precautions PT/OT Meclizine PRN 07/03 PT: (+) Tomás Hallpike test continue PT continue PRN Meclizine add PRN Ativan for severe dizziness Brain MRI: no acute CVA continue IV fluids Hypokalemia replaced Nausea, Vomiting, Diarrhea resolved gentle IV fluids hold BP meds due to low BP Hypothyroidism Continue Levothyroxine Hypertension HOLD Losartan, HCTZ due to borderline BP Mood disorder on Sertraline CKD III Cr at baseline Monitor renal function Chronic rhinitis Continue Flonase Takes antihistamines daily--Doesn't remember name DVT Px: Lovenox SQ Code Status Full Code plan of care discussed with patient in detail and at length all questions answered she is understanding, agreeable, comfortable with the plan of care Admission and Anticipated Discharge Date Admission Date: July 02, 2021 Subjective ff up for dizziness, etc seen resting in bed, sitting up not in distress states she still has dizziness when getting up no chest pain, dyspnea, palpitations, dizziness no other focal deficits patient experienced dizziness after sitting up, and also when bed was reclined backwards Review of Systems Review of Systems: all noted and negative except for above Physical Exam Physical Exam: General- oriented x 3, not in distress, speaks in sentences with no effort or accessory muscle use Head- atraumatic Eyes- PERRL, EOMI, anicteric ENT- oropharynx clear Neck- supple, no JVD, no adenopathy, no thyromegaly; carotids +2/2, no bruits appreciated Lungs- clear to auscultation bilaterally, no rales/wheezes Heart- normal rate, regular rhythm; no murmur, no gallop, no rub appreciated Abdomen- normal bowel sounds, nondistended, soft, nontender, no masses or hepatosplenomegaly Extremities- no pretibial edema, no calf tenderness; peripheral pulses intact Neuro- alert, oriented x 3; CN 2-12 grossly intact; motor 5/5 b ilaterally;sensation 100% on all extremities; no other gross focal neurologic deficits Skin- warm & dry Results & Data Results & Data ([facility]) Vital Signs (Past 12 Hours) Vital Signs Temp Pulse Pulse Resp BP Pulse Ox 07/03/21 15:19 36.8 C 53 L 18 116/71 92 07/03/21 15:18 65 07/03/21 11:15 36.7 C 58 L 18 115/66 93 07/03/21 08:00 55 L 07/03/21 07:32 37.0 C 61 18 105/49 L 92 all noted and reviewed including below
[2021-07-04] MEDS: LEVOTHYROXINE SODIUM 88 MCG TABLET PO SCH (06:30)
[2021-07-04] MEDS: POTASSIUM CHLORIDE 10 MEQ TABCR PO SCH (06:30)
[2021-07-04] MEDS: FLUTICASONE PROPIONATE NA SPR 16 GM BTL SCH (08:05)
[2021-07-04] MEDS: ENOXAPARIN INJ 40 MG/0.4 ML SYR SQ SCH (08:05)
[2021-07-04] MEDS: SERTRALINE HCL 50 MG TABLET PO SCH (08:05)
[2021-07-04] MEDS: ROSUVASTATIN CALCIUM 5 MG TAB PO SCH (08:06)
--- NOTE | 2021-07-04 11:25 | Hospitalist Progress Note ---
Date of Service July 04, 2021 Assessment & Plan (1) Dizziness: Plan: per admitting [facility] [place] notes with addendum Dizziness secondary to Vertigo H/O Vertigo CT head: No acute intracranial findings Brain MRI: 1. No acute intracranial abnormalities. 2. 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 Echo: mild LVH, no wall motion abnormalities, EF 60-65% Telemetry: no arrhythmia evaluated by PT: (+) Tomás Hallpike test dizziness improved with Vitaly Maneuver continue PRN Meclizine continue Vitaly Maneuver at home ff up with PCP in 1 week Nausea, Vomiting, Diarrhea resolved prior to admission Hypothyroidism Continue Levothyroxine Hypertension continue Losartan Mood disorder on Sertraline CKD III Cr at baseline Chronic rhinitis Continue Flonase Takes antihistamines daily--Doesn't remember name DVT Px: Lovenox SQ Code Status Full Code Disposition d/c home today ff up with PCP in 1 week plan of care discussed with patient in detail and at length all questions answered she is understanding, agreeable, comfortable with the plan of care Admission and Anticipated Discharge Date Admission Date: July 02, 2021 Subjective ff up for dizziness, etc seen resting in bed, sitting up in good spirits states dizziness is better able to stand up and ambulate in the room to the with mild dizziness no chest pain, dyspnea, palpitations no other symptoms Review of Systems Review of Systems: all noted and negative except for above Physical Exam Physical Exam: General- oriented x 3, not in distress, speaks in sentences with no effort or accessory muscle use Eyes- anicteric Neck- no JVD Lungs- clear breath sounds bilaterally, no rales/wheezes Heart- normal rate, regular rhythm; no murmurs Abdomen- normal bowel sounds, nondistended, soft, nontender Extremities- no pretibial edema, no calf tenderness Neuro- alert, oriented x 3; no gross focal neurologic deficits Skin- warm & dry Results & Data Results & Data ([facility]) Vital Signs (Past 12 Hours) Vital Signs Temp Pulse Pulse Resp BP BP Pulse Ox 07/04/21 07:17 73 07/04/21 07:15 36.7 C 63 18 144/60 H 92 07/04/21 03:50 36.8 C 61 16 119/63 91 07/04/21 00:10 36.4 C L 58 L 18 114/60 92 all noted and reviewed including below
[2021-07-04] MEDS: PROMETHAZINE HCL 6.25 MG in SODIUM CHLORIDE 0.9% 50 ML IV PRN (11:56)
[2021-07-04] MEDS ORDERED: hydroCHLOROthiazide 25 MG TAB PO STA (12:11)
--- NOTE | 2021-07-04 12:28 | Discharge Summary ---
Date of Service July 04, 2021 Admission HPI Per Admitting Provider Patient is a 76-year-old female with history of hypothyroidism, vertigo, hypertension, history of tobacco use, mood disorder, CKD stage III, chronic rhinitis and other medical problems presents with history of dizziness which has been gradually worsening since past 2 days. Patient had history of vertigo but states that current dizziness is different from her usual symptoms. She currently feels lightheaded but denies any history of syncope. Initial symptoms started 2 weeks ago which resolved and had recurrence since 2 days. She has been having balance issues with ambulation secondary to dizziness. Reports a ssociated headache intermittently. Also had nausea, vomiting and diarrhea since 2 days duration. Denies any hearing loss, tinnitus, recent upper respiratory infection. Also denies any fall, head trauma, visual changes, focal weakness, bowel or bladder incontinence, chest pain, shortness of breath, fever, chills, palpitations. No aggravating or relieving factors noted. Admission Exam Per Admitting Provider Physical Exam: Vitals signs as noted above General Appearance:Obese, no apparent distress Head: normocephalic, Atraumatic Eyes: normal inspection, EOMI Neck: supple, Trachea midline Respiratory/Chest: Normal breath sounds, CTA, No accessory muscle use Cardiovascular: S1, S2, No murmur Abdomen/GI:Soft, Non tender, Bowel sounds present Extremities/Musculoskeletal:normal inspection, no edema Neurologic/Psych:AAOX3, grossly no focal neurological deficits Skin: normal color, warm Principal Diagnosis DIZZINESS SECONDARY TO VERTIGO Discharge Exam General- oriented x 3, not in distress, speaks in sentences with no effort or accessory muscle use Eyes- anicteric Neck- no JVD Lungs- clear breath sounds bilaterally, no rales/wheezes Heart- normal rate, regular rhythm; no murmurs Abdomen- normal bowel sounds, nondistended, soft, nontender Extremities- no pretibial edema, no calf tenderness Neuro- alert, oriented x 3; no gross focal neurologic deficits Skin- warm & dry Discharge Data Allergies Allergy/AdvReac Type Severity Reaction Status Date / Time bacitracin Allergy Mild ITCHY Verified 07/02/21 12:20 neomycin Allergy Mild ITCHY Verified 07/02/21 12:20 nickel Allergy Mild RASH Verified 07/02/21 12:20 Sulfa (Sulfonamide AdvReac Intermediate HALLUCINATIONS, Verified 04/15/22 12:20 Antibiotics) "I GET GOOFY" Consultations 07/02/21 13:43 ED Decision to Admit Stat Ordered Studies 07/02/21 10:56 CT head/brain wo con Stat 07/02/21 14:39 US carotid doppler BI Routine RIGHT CAROTID: The peak systolic velocity measured within the right ICA is112 cm/sec. The end diastolic velocity measured 27 cm/sec. The ICA to CCA ratio measured 2.3 which correlates with a stenosis of 0-50%. There is only minimal atherosclerotic plaque of the right carotid bulb. LEFT CAROTID: The peak systolic velocity measured within the left ICA is101 cm/sec. The end diastolic velocity measured 24 cm/sec. The ICA to CCA ratio measured 1.9 which correlates with a stenosis of 0-50%. There is only minimal atherosclerotic plaque of the left carotid bulb. There is normal antegrade vertebral flow bilaterally. IMPRESSION: 1. No hemodynamically significant stenosis or significant atherosclerotic plaquing. 2. Normal antegrade vertebral flow bilaterally. 07/03/21 07:59 MR brain wo con Routine MR brain wo con CLINICAL HISTORY: Dizziness for 3 days. Evaluate for possible stroke.. COMPARISON STUDY: CT brain from 07/02/2021 and previous MR from 02/20/2015 TECHNIQUE: Multiplanar multisequence images of the Brain were performed without IV contrast. Diffusion weighted imaging and ADC mapping was also performed. FINDINGS: Extra-axial space: There is no evidence for a subdural hematoma, There are no extra-axial fluid collections. Ventricles and cisterns: The ventricles are normal in size and configuration. There is no evidence for midline shift or mass effect. Parenchyma: There is no evidence for an acute hemorrhage or infarct. No acute diffusion abnormalities are noted on diffusion weighted imaging or ADC mapping. There is normal tobin-white differentiation. There is mild cerebral cortical atrophy present. There is bright signal seen on FLAIR weighted sequences within the centrum semiovale and periventricular white matter characteristic of remote small vessel disease. The sulci and gyri appear normal without effacement. The midline structures are unremarkable. The posterior fossa structures appear normal. There is no evidence for mass lesion. Osseous structures: The paranasal sinuses are well aerated. The mastoid air ce lls are well aerated. Soft tissues: No focal soft tissue abnormalities are identified. IMPRESSION: 1. No acute intracranial abnormalities. 2. 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 ACT 112: Negative or not required by law. Hospital Course (1) Dizziness: per admitting [facility] [place] notes with addendum Dizziness secondary to Vertigo H/O Vertigo CT head: No acute intracranial findings Brain MRI: 1. No acute intracranial abnormalities. 2. 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 Echo: mild LVH, no wall motion abnormalities, EF 60-65% Telemetry: no arrhythmia evaluated by PT: (+) [place] Hallpike test dizziness improved with Vitaly Maneuver continue PRN Meclizine continue Vitaly Maneuver at home ff up with PCP in 1 week Nausea, Vomiting, Diarrhea resolved prior to admission Hypothyroidism Continue Levothyroxine Hypertension continue Losartan Mood disorder on Sertraline CKD III Cr at baseline Chronic rhinitis Continue Flonase Takes antihistamines daily--Doesn't remember name DVT Px: Lovenox SQ Code Status Full Code Disposition d/c home today ff up with PCP in 1 week plan of care discussed with patient in detail and at length all questions answered she is understanding, agreeable, comfortable with the plan of care Total Time Total Time Spent Total Time Spent (In Minutes): >30 MINUTES Discharge Plan Discharge Items Patient Disposition: Home - Self-Care Reason For Visit: DIZZINESS Discharge Diagnosis: DIZZINESS SECONDARY TO VERTIGO Activity: As commented below Activity Comment: GRADUALLY INCREASE TOLERATED Lifting: Wait until after follow-up appointment Exercise/Sports: Wait until after follow-up appointment Driving/Machine Use: NO DRIVING UNTIL RE-EVALUATED AND ALLOWED BY PRIMARY CARE PHYSICIAN Non-emergency contact: Primary Care Provider Call non-emergency contact if: you have any medication questions, your symptoms worsen and you have a fever Follow-up/Referrals: Tyron Valadez MD [Primary Care Provider] - Diet: Heart Healthy Addtl Attending Provider Instructions: CONTINUE VITALY MANEUVER AT HOME. IF NOT ABLE TO PERFORM THE MANEUVER AT HOME, YOU WILL NEED A PHYSICAL THERAPY REFERRAL. CONTINUE YOUR MEDICATION REGIMEN. TAKE MECLIZINE NEEDED FOR DIZZINESS. PLEASE CALL YOUR PRIMARY CARE PHYSICIAN OR RETURN TO THE ER IF WITH WORSENING OF SYMPTOMS, INCLUDING WORSENING OF DIZZINESS, WEAKNESS, NAUSEA/VOMITING. FOLLOW UP WITH PRIMARY CARE PHYSICIAN OUTLINED ABOVE. Pending Studies at Discharge: No Stand-Alone Forms: [employer], Smoking Cessation Medications and DC Order Prescriptions: Continued potassium chloride 10 mEq Capsule, Extended Release 30 meq PO DAILYBB RF: 0 sertraline 100 mg tablet 150 mg PO QAM RF: 0 levothyroxine 88 mcg tablet 88 mcg PO DAILYBB RF: 0 hydrochlorothiazide 25 mg tablet 25 mg PO QDD RF: 0 fluticasone propionate 50 mcg/actuation spray,suspension 2 spray intranasal BID RF: 0 albuterol sulfate 90 mcg/actuation Hfa Aerosol Inhaler 2 puff INHALATION Q6H PRN (Reason: Shortness Of Breath Or Wheezing) RF: 0 latanoprost 0.005 % drops 1 drp OPB HS RF: 0 rosuvastatin 5 mg tablet 5 mg PO QAM RF: 0 coQ10 (ubiquinol) 200 mg Capsule 200 mg PO QDL RF: 0 meclizine 25 mg tablet 25 mg PO TID PRN (Reason: Dizziness) Qty: 20 RF: 0 Discharge Orders: Discharge Order (Routine); Ordered 07/04/21 Ordered By: Jcarlos Banda Admission Data Admit Date/Time: 07/02/21 14:33 Attending Provider: Jcarlos Banda Admit Provider: Alexis Benitez Primary Care Provider: Tyron Valadez Other Providers: Alexis Benitez
[2021-07-05] MEDS ORDERED: hydroCHLOROthiazide 25 MG TAB PO SCH (09:00)
== END 2021-07-04 14:13 | disposition home or self-care (01) | DRG 149 ==
LOC: ED 10:34 → INTOOBSV 14:33 → SUATTDRO 14:33 → 2N 14:33